=== PATIENT | male | born 1955 ===

== ENCOUNTER 2017-06-26 09:34 | Emergency (ER) | payer OTHER ==
[2017-06-26 09:41] VITALS: BMI 24.1
[2017-06-26 09:43] VITALS: RESP 18
--- NOTE | 2017-06-26 10:10 | C.PDOC ---
History Of Present Illness The patient reports 2 week history of intermittent swelling and redness to the bilateral legs and hands, which is associated with ? SOB. Patient reports that the swelling switches sides sporadically. Denies trauma, chest pain, nausea, vomiting, diarrhea, cough, fever, rash. Time Seen by Provider: 06/26/17 09:48 Chief Complaint (Nursing): Lower Extremity Problem/Injury History Per: Patient, Family () History/Exam Limitations: no limitations Onset/Duration Of Symptoms: Intermittent Episodes Current Symptoms Are (Timing): Still Present Severity: Moderate Pain Scale Rating Of: 5 Recent travel outside of the [place]: Yes (Traveled from [facility] 4 months ago.) Past Medical History Reviewed: Historical Data, Nursing Documentation, Vital Signs Vital Signs: Last Vital Signs Temp 98.4 F 06/26/17 13:55 Pulse 79 06/26/17 13:55 Resp 18 06/26/17 13:55 BP 138/72 06/26/17 13:55 Pulse Ox 98 06/26/17 14:12 - Medical History PMH: No Chronic Diseases Surgical History: No Surg Hx Family History: States: No Known Family Hx - Social History Hx Tobacco Use: No Hx Alcohol Use: Yes Hx Substance Use: No - Immunization History Hx Tetanus Toxoid Vaccination: No Hx Influenza Vaccination: No Hx Pneumococcal Vaccination: No Review Of Systems Except As Marked, All Systems Reviewed And Found Negative. Musculoskeletal: Positive for: Hand Pain Skin: Positive for: Other (erythema) Physical Exam - Physical Exam Appears: Non-toxic, No Acute Distress Skin: Normal Color, Warm Head: Atraumatic, Normacephalic Eye(s): bilateral: Normal Inspection Oral Mucosa: Moist Neck: Normal ROM, Supple Chest: Symmetrical, No Tenderness Cardiovascular: Rhythm Regular, No Friction Rub, No Murmur Respiratory: Normal Breath Sounds, No Rales, No Rhonchi Gastrointestinal/Abdominal: Normal Exam, Soft, No Tenderness Back: Normal Inspection, No CVA Tenderness Extremity: Normal ROM, Other ((+) 1+ edema with erythema of the ankle and dorsal aspect of the right foot, (+) tenderness) ED Course And Treatment - Laboratory Results Result Diagrams: 06/26/17 10:51 06/26/17 12:16 O2 Sat by Pulse Oximetry: 98 (on RA) Pulse Ox Interpretation: Normal Medical Decision Making Medical Decision Making: The patient has history of migratory swelling and tenderness in different joints , which is most likely gout vs. rheumatic arthritis. Disposition - Disposition Referrals: [facility] [Outside] Disposition: HOME/ ROUTINE Disposition Time: 14:06 Condition: GOOD Additional Instructions: Follow up with the medical doctor within 1-2 days without fail. Return if worsened. Prescriptions: Colchicine [Mitigare] 0.6 mg PO DAILY #5 capsule Ibuprofen [Motrin] 1 tab PO TID PRN #30 tab PRN Reason: Pain predniSONE [Prednisone] 20 mg PO BID #10 tab Instructions: Gout, Low Purine Diet Forms: [employer] [facility] (German) Print Language: BELARUSIAN - Clinical Impression Clinical Impression: Gout
[2017-06-26 10:54] LABS: BASO # 0.1 K/uL (0.0-0.2); BASO % 0.7 % (0.0-2.0); EOS # 0.7 K/uL (0.0-0.7); EOS % 6.3 % (0.0-4.0); HEMOGLOBIN 13.4 g/dL (12.0-18.0); LYMPH # 2.5 K/uL (1.0-4.3); LYMPH % 23.2 % (20.0-40.0); MEAN CELL VOLUME 92.2 fL (80.0-94.0); MEAN CORPUSCULAR HEMOGLOBIN 31.9 pg (27.0-31.0); MEAN CORPUSCULAR HGB CONC 34.6 g/dL (33.0-37.0); MEAN PLATELET VOLUME 9.1 fL (7.2-11.7); MONO # 1.1 K/uL (0.0-0.8); MONO % 10.3 % (0.0-10.0); NEUT # 6.3 K/uL (1.8-7.0); NEUT % 59.5 % (50.0-75.0); RBC 4.2 Mil/uL (4.40-5.90); RED CELL DISTRIBUTION WIDTH 13.2 % (11.5-14.5); WHITE BLOOD COUNT 10.7 K/uL (4.8-10.8)
--- NOTE | 2017-06-26 11:09 | RAD ---
PROCEDURE: CHEST RADIOGRAPH, 1 VIEW HISTORY: chest pain COMPARISON: None available. FINDINGS: LUNGS: Left basilar calcified granulomas. No focal consolidation. PLEURA: No pneumothorax or pleural fluid seen. CARDIOVASCULAR: Atherosclerotic aortic calcifications. Cardiomediastinal silhouette enlarged. OSSEOUS STRUCTURES: Degenerative changes. VISUALIZED UPPER ABDOMEN: Normal. OTHER FINDINGS: None. IMPRESSION: No active disease.
[2017-06-26 12:26] LABS: ALBUMIN 3.9 g/dL (3.5-5.0); ALT/SGPT 15 U/L (21-72); AST/SGOT 37 U/L (17-59); BLOOD UREA NITROGEN 13 mg/dL (9-20); CALCIUM 9.4 mg/dl (8.6-10.4); GFR AFRICAN-AMERICAN > 60; GFR NON-AFRICAN AMERICAN > 60
[2017-06-26 12:34] LABS: B-TYPE NATRIURETIC PEPTIDE 1070 pg/mL (0-900)
--- NOTE | 2017-06-26 13:12 | CARD ---
APPROVED REPORT EKG Measurement Heart [id number] <Conclusion> Normal sinus rhythm Normal ECG
[2017-06-26 13:55] VITALS: BP 138/72; PULSE 79; TEMP 98.4
[2017-06-26 14:09] VITALS: O2SAT 98
== END 2017-06-26 14:32 | disposition home or self-care (01) ==
LOC: C.ER 09:34
DX: M10.9 Gout, unspecified (principal)
CPT/HCPCS: 71045; 80053; 83880; 85025; 85651; 86140; 93005; 96374; 99284; J1885

== ENCOUNTER 2017-11-18 18:50 | Inpatient (IN) | payer MEDICAID, OTHER ==
[2017-11-18 18:50] VITALS: BMI 24.1
--- NOTE | 2017-11-18 19:16 | C.PDOC ---
History Of Present Illness 62 year old male patient presents to the ER with left flank pain that started about 2 days ago. Patient had recent CABG 2 months ago. Patient denies fever, nausea, vomiting, or chills. Time Seen by Provider: 11/18/17 19:16 Chief Complaint (Nursing): Back Pain History Per: Patient History/Exam Limitations: no limitations Onset/Duration Of Symptoms: Days Current Symptoms Are (Timing): Still Present Quality Of Discomfort: "Pain" Severity: Moderate Pain Scale Rating Of: 4 Previous Symptoms: Prior Surgery (CABG) Associated Symptoms: denies: Other (N/V/D, fever, or chills) Past Medical History Reviewed: Historical Data, Nursing Documentation, Vital Signs Vital Signs: Last Vital Signs Temp 97.6 F 11/18/17 19:01 Pulse 64 11/18/17 23:09 Resp 23 11/18/17 23:09 BP 135/64 11/18/17 23:09 Pulse Ox 95 11/18/17 23:09 - Medical History PMH: HTN Family History: States: No Known Family Hx - Social History Hx Tobacco Use: No Hx Alcohol Use: Yes Hx Substance Use: No - Immunization History Hx Tetanus Toxoid Vaccination: No Hx Influenza Vaccination: No Hx Pneumococcal Vaccination: No Review Of Systems Constitutional: Negative for: Fever, Chills Cardiovascular: Negative for: Chest Pain Respiratory: Negative for: Shortness of Breath Gastrointestinal: Positive for: Abdominal Pain (Left flank pain). Negative for : Nausea, Vomiting Genitourinary: Negative for: Dysuria Musculoskeletal: Negative for: Back Pain Skin: Negative for: Rash Neurological: Negative for: Weakness Psych: Negative for: Anxiety Physical Exam - Physical Exam Appears: Non-toxic, No Acute Distress Skin: Warm, Dry Head: Normacephalic Eye(s): bilateral: Normal Inspection Oral Mucosa: Moist Neck: Trachea Midline, Supple Chest: Symmetrical Cardiovascular: Rhythm Regular Respiratory: No Rales, No Rhonchi, No Wheezing Gastrointestinal/Abdominal: Soft, Tenderness (LLQ ), No Distention, No Guarding , Other (CABG scar) Back: Normal Inspection Male Genital: No Inguinal Tenderness, No Inguinal Swelling Extremity: Normal ROM (x4) Extremity: Bilateral: Atraumatic Pulses: Left Dorsalis Pedis: Normal (2+), Right Dorsalis Pedis: Normal (2+) Neurological/Psych: Oriented x3 Gait: Steady ED Course And Treatment - Laboratory Results Result Diagrams: 11/18/17 19:36 11/18/17 20:22 ECG: Interpreted By Me, Viewed By Me O2 Sat by Pulse Oximetry: 97 (RA) Pulse Ox Interpretation: Normal Progress Note: Impression: left flank abdominal pain. Plan: -- blood work. - - piperacillin IVP. -- IV fluids. -- Toradol. -- Zofran. -- UA. spoke with surgical residentl. will come and see the pt at the bedside Disposition Discussed With DrHuy: Yanick Reyes Comment: accepted the pt on his service and took over the care at 12AM Doctor Will See Patient In The: Hospital Counseled Patient/Family Regarding: Studies Performed, Diagnosis - Disposition Disposition: HOSPITALIZED Disposition Time: 19:16 Condition: FAIR Forms: [facility] (Guyanese) - POA Present On Arrival: None - Clinical Impression Clinical Impression: Acute appendicitis - Scribe Statement The provider has reviewed the documentation as recorded by the Alex Kenny Do Provider Attestation: All medical record entries made by the Alex were at my direction and personally dictated by me. I have reviewed the chart and agree that the record accurately reflects my personal performance of the history, physical exam, medical decision making, and the department course for this patient. I have also personally directed, reviewed, and agree with the discharge instructions and disposition.
[2017-11-18] MEDS ORDERED: Sodium Chloride 0.9% 1,000 ML IV ONE (19:17)
[2017-11-18 19:42] LABS: BASO # 0.1 K/uL (0.0-0.2); BASO % 0.3 % (0.0-2.0); EOS # 0.1 K/uL (0.0-0.7); EOS % 0.3 % (0.0-4.0); LYMPH # 2.3 K/uL (1.0-4.3); LYMPH % 12.8 % (20.0-40.0); MEAN CORPUSCULAR HEMOGLOBIN 29.4 pg (27.0-31.0); MEAN CORPUSCULAR HGB CONC 33.6 g/dL (33.0-37.0); MEAN PLATELET VOLUME 8.1 fL (7.2-11.7); MONO # 1.2 K/uL (0.0-0.8); MONO % 6.5 % (0.0-10.0); NEUT # 14.2 K/uL (1.8-7.0); NEUT % 80.1 % (50.0-75.0); RBC 4.42 Mil/uL (4.40-5.90); RED CELL DISTRIBUTION WIDTH 16.5 % (11.5-14.5)
[2017-11-18] MEDS ORDERED: Sodium Chloride 0.9% 1,000 ML ONE (19:47)
[2017-11-18 19:50] LABS: INR 1.5; MEAN CELL VOLUME 87.5 fL (80.0-94.0); PROTHROMBIN TIME 16.1 SECONDS (9.7-12.2); WHITE BLOOD COUNT 17.7 K/uL (4.8-10.8)
[2017-11-18 19:53] LABS: URINE BILIRUBIN NEGATIVE (NEGATIVE); URINE BLOOD 1+ (NEGATIVE); URINE CLARITY Clear (Clear); URINE COLOR Yellow (YELLOW); URINE GLUCOSE (UA) NORMAL (Normal); URINE LEUKOCYTE ESTERASE NEG Leu/uL (Negative); URINE PROTEIN 1+ mg/dL (NEGATIVE); URINE UROBILINOGEN NORMAL mg/dL (0.2-1.0)
[2017-11-18] MEDS ORDERED: Piperacillin/Tazobact 3.375 gm 100 ML IVPB STA (19:54)
[2017-11-18] MEDS ORDERED: Piperacillin/Tazobact 3.375 gm 100 ML IVPB ONE (20:31)
[2017-11-18 20:40] LABS: ALB/GLOB RATIO 1.1 (1.0-2.1); ALBUMIN 3.8 g/dL (3.5-5.0); ALT/SGPT 34 U/L (21-72); AST/SGOT 17 U/L (17-59); BLOOD UREA NITROGEN 10 mg/dL (9-20); CALCIUM 8.8 mg/dl (8.6-10.4); GFR AFRICAN-AMERICAN > 60; GFR NON-AFRICAN AMERICAN > 60
[2017-11-18] MEDS ORDERED: Iohexol 300 100 ML IJ ONE (21:05)
[2017-11-19] MEDS: Sodium Chloride 0.9% 1,000 ML IV SCH ×2 (01:02→13:54)
[2017-11-19] MEDS: Cefepime IV 1 gm in Dextrose 1 GM/50 ML BAG IVPB SCH ×2 (01:02→13:24)
[2017-11-19] MEDS ORDERED: Sodium Chloride 0.9% 1,000 ML ONE (01:03)
--- NOTE | 2017-11-19 01:42 | CP.PCM.CON ---
Addendum entered and electronically signed by Deniz Jarquin DO 11/19/17 07:09: Patient w/ history of cardiac bypass ~6-8 weeks ago Medically optimize for OR Will need cardiac clearance Gamaliel PGY3 Original Note: <Deniz Jarquin - Last Filed: 11/19/17 01:37> History of Present Illness - History of Present Illness History of Present Illness: General Surgery Consult for Dr. Woody 62M with PMHx of HTN presents to [facility] [place] ED with complaints of abdominal pain. Patient states abdominal pain began yesterday morning after having breakfast. Patient states pain was generalized throughout abdomen initially and as time progressed pain localized to right lower quadrant. He reports nausea but denies vomiting. Denies fever/chills. Last BM was two days ago. Patient states he has never had a colonoscopy. Denies fever/chills, headache/dizziness, chest pain/ SOB. PMH: as stated above PSH: CABG Allergies: NKDA Fam Hx: non contributory Review of Systems - Review of Systems Review of Systems: 12pt ROS unremarkable unless as stated in HPI Past Patient History - Past Social History Smoking Status: Former Smoker - CARDIAC Hx Hypertension: Yes - PSYCHIATRIC Hx Substance Use: No - SURGICAL HISTORY Hx Surgeries: Yes Other/Comment: open heart 09/25 - ANESTHESIA Hx Anesthesia: Yes Hx Anesthesia Reactions: No Meds Allergies/Adverse Reactions: Allergies Allergy/AdvReac Type Severity Reaction Status Date / Time No Known Allergies Allergy Verified 06/26/17 09:40 - Medications Medications: Current Medications Acetaminophen (Tylenol 325mg Tab) 650 mg PO Q6 PRN PRN Reason: Fever >100.4 F Sodium Chloride (Sodium Chloride 0.9%) 1,000 mls @ 75 mls/hr IV .[id number] [facility] Last Admin: 11/19/17 01:02 Dose: 75 mls/hr Cefepime HCl (Maxipime Iv 1 Gm Premix) 1 gm in 50 mls @ 100 mls/hr IVPB Q12H [facility] PRN Reason: Protocol Last Admin: 11/19/17 01:02 Dose: 100 mls/hr Metronidazole (Flagyl) 500 mg in 100 mls @ 100 mls/hr IVPB Q8 [facility] PRN Reason: Protocol Morphine Sulfate (Morphine) 4 mg IVP Q4 PRN PRN Reason: Pain, moderate (4-7) Ondansetron HCl (Zofran Inj) 4 mg IVP Q6H PRN PRN Reason: Nausea/Vomiting Physical Exam - Constitutional Appears: No Acute Distress - Head Exam Head Exam: NORMOCEPHALIC - Eye Exam Eye Exam: EOMI, Normal appearance Pupil Exam: NORMAL ACCOMODATION - ENT Exam ENT Exam: Mucous Membranes Moist - Respiratory Exam Respiratory Exam: NORMAL BREATHING PATTERN - Cardiovascular Exam Cardiovascular Exam: +S1, +S2 - GI/Abdominal Exam GI & Abdominal Exam: Guarding, Soft, Tenderness. absent: Distended, Firm, Rebound, Rigid Additional comments: +McBurney's point +RLQ tenderness +Rebound tenderness - Neurological Exam Neurological exam: Alert, Reflexes Normal - Psychiatric Exam Psychiatric exam: Normal Mood - Skin Skin Exam: Normal Color Results - Vital Signs Recent Vital Signs: Last Vital Signs Temp 97.6 F 11/18/17 19:01 Pulse 64 11/18/17 23:09 Resp 23 11/18/17 23:09 BP 135/64 11/18/17 23:09 Pulse Ox 97 11/19/17 00:11 - Labs Result Diagrams: 11/18/17 19:36 11/18/17 20:22 Labs: Laboratory Results - last 24 hr 11/18/17 11/18/17 11/18/17 19:36 19:36 19:36 WBC 17.7 H D RBC 4.42 Hgb 13.0 Hct 38.7 MCV 87.5 D MCH 29.4 MCHC 33.6 RDW 16.5 H Plt Count 330 MPV 8.1 Neut % (Auto) 80.1 H Lymph % (Auto) 12.8 L [place] % (Auto) 6.5 Eos % (Auto) 0.3 Baso % (Auto) 0.3 Neut # (Auto) 14.2 H Lymph # (Auto) 2.3 [place] # (Auto) 1.2 H Eos # (Auto) 0.1 Baso # (Auto) 0.1 PT 16.1 H INR 1.5 APTT 29 Sodium Potassium Chloride Carbon Dioxide Anion Gap BUN Creatinine Est GFR ( Amer) Est GFR (Non-Af Amer) Random Glucose Calcium Total Bilirubin AST ALT Alkaline Phosphatase Total Protein Albumin Globulin Albumin/Globulin Ratio Lipase Urine Color Yellow Urine Clarity Clear Urine pH 5.0 Ur Specific [place] 1.021 Urine Protein 1+ H Urine Glucose (UA) Normal Urine Ketones Trace Urine Blood 1+ H Urine Nitrate Negative Urine Bilirubin Negative Urine Urobilinogen Normal Ur Leukocyte Esterase Neg Urine WBC (Auto) 1 Urine RBC (Auto) 23 H 11/18/17 11/18/17 19:36 20:22 WBC RBC Hgb Hct MCV MCH MCHC RDW Plt Count MPV Neut % (Auto) Lymph % (Auto) [place] % (Auto) Eos % (Auto) Baso % (Auto) Neut # (Auto) Lymph # (Auto) [place] # (Auto) Eos # (Auto) Baso # (Auto) PT INR APTT Sodium Cancelled 140 Potassium Cancelled 5.0 Chloride Cancelled 100 Carbon Dioxide Cancelled 27 Anion Gap Cancelled 17 BUN Cancelled 10 Creatinine Cancelled 0.8 Est GFR ( Amer) Cancelled > 60 Est GFR (Non-Af Amer) Cancelled > 60 Random Glucose Cancelled 110 Calcium Cancelled 8.8 Total Bilirubin Cancelled 0.8 AST Cancelled 17 D ALT Cancelled 34 Alkaline Phosphatase Cancelled 72 Total Protein Cancelled 7.1 Albumin Cancelled 3.8 Globulin Cancelled 3.4 Albumin/Globulin Ratio Cancelled 1.1 Lipase Cancelled Urine Color Urine Clarity Urine pH Ur Specific [place] Urine Protein Urine Glucose (UA) Urine Ketones Urine Blood Urine Nitrate Urine Bilirubin Urine Urobilinogen Ur Leukocyte Esterase Urine WBC (Auto) Urine RBC (Auto) Assessment & Plan - Assessment and Plan (Free Text) Assessment: 62M with acute appendicitis Plan: NPO IVF ABx Anti-emetics/ analgesic F/u EKG, CXR OR for laparoscopic appendectomy Consent in chart D/w Dr. Annalise Alston PGY3 <Patricio Woody - Last Filed: 11/21/17 22:48> Meds - Medications Medications: Current Medications Acetaminophen (Tylenol 325mg Tab) 650 mg PO Q6 PRN PRN Reason: Fever >100.4 F Enoxaparin Sodium (Lovenox) 40 mg SC DAILY [facility] Last Admin: 11/21/17 14:10 Dose: 40 mg Hydromorphone HCl (Dilaudid) 0.5 mg IVP Q3H PRN PRN Reason: Pain, moderate (4-7) Last Admin: 11/21/17 18:25 Dose: 0.5 mg Sodium Chloride (Sodium Chloride 0.9%) 1,000 mls @ 75 mls/hr IV .[id number] [facility] Last Admin: 11/21/17 18:20 Dose: 75 mls/hr Meropenem 1 gm/ Sodium (Chloride) 100 mls @ 100 mls/hr IVPB Q8H [facility] PRN Reason: Protocol Last Admin: 11/21/17 21:39 Dose: 100 mls/hr Metronidazole (Flagyl) 500 mg in 100 mls @ 100 mls/hr IVPB Q8H [facility] PRN Reason: Protocol Last Admin: 11/21/17 18:18 Dose: 100 mls/hr BUPIVACAINE 0.125%/0.9% NACL (Bupivacaine-Ns 0.125% On-Q [place] Stringer) 600 mls @ 4 mls/ hr IJ ONCE ONE Stop: 11/26/17 17:26 Last Admin: 11/20/17 12:35 Dose: 0 mls Metoprolol Tartrate (Lopressor) 100 mg PO DAILY [facility] Last Admin: 11/21/17 10:20 Dose: 100 mg Ondansetron HCl (Zofran Inj) 4 mg IVP Q6H PRN PRN Reason: Nausea/Vomiting Rosuvastatin Calcium (Crestor) 20 mg PO DAILY [facility] Last Admin: 11/21/17 10:20 Dose: 20 mg Results - Vital Signs Recent Vital Signs: Last Vital Signs Temp 98.6 F 11/21/17 16:21 Pulse 75 11/21/17 16:21 Resp 20 11/21/17 16:21 BP 148/89 11/21/17 16:21 Pulse Ox 93 L 11/21/17 16:21 - Labs Result Diagrams: 11/21/17 07:09 11/21/17 07:09 Labs: Laboratory Results - last 24 hr 11/21/17 11/21/17 07:09 07:09 WBC 9.7 RBC 4.16 L Hgb 12.3 Hct 36.4 MCV 87.5 MCH 29.5 MCHC 33.7 RDW 16.5 H Plt Count 278 MPV 8.5 Neut % (Auto) 77.2 H Lymph % (Auto) 13.8 L [place] % (Auto) 8.6 Eos % (Auto) 0.2 Baso % (Auto) 0.2 Neut # (Auto) 7.5 H Lymph # (Auto) 1.3 [place] # (Auto) 0.8 Eos # (Auto) 0.0 Baso # (Auto) 0.0 Sodium 134 Potassium 3.8 Chloride 99 Carbon Dioxide 24 Anion Gap 15 BUN 8 L Creatinine 0.6 L Est GFR ( Amer) > 60 Est GFR (Non-Af Amer) > 60 Random Glucose 107 Calcium 8.0 L Phosphorus 3.2 Magnesium 1.3 L Attending/Attestation - Attestation I have personally seen and examined this patient.: Yes I have fully participated in the care of the patient.: Yes I have reviewed all pertinent clinical information: Yes Notes (Text): Pt was seen and examined at bedside Agree with above note and assessment Pt with RLQ pain and tenderness Labs and radiology reviewed Ass: Acute Appendicitis with Recent Aortic Aneurysm surgery 6 weeks ago Plan : Cardiology consult Possible Lap Appendectomy tomorrow Consent EKG, CXR NPO, IVF ID consult IV antibiotics Plan d.w pt in detail. Risk and benefit explained in detail.
[2017-11-19] MEDS ORDERED: metroNIDAZOLE IV 500 mg/100 ml 500 MG/100 ML BAG IVPB SCH (06:00)
--- NOTE | 2017-11-19 09:20 | RAD ---
Date of service: 11/19/2017 HISTORY: pre-op COMPARISON: 06/26/2017 FINDINGS: LUNGS: No consolidation. Tiny left basal granuloma -similar PLEURA: No significant pleural effusion identified, no pneumothorax apparent. CARDIOVASCULAR: Minimal cardiomegaly cardiac silhouette less pronounced than before -in part due to PA technique. Interval midline sternotomy. Interval valvular prosthesis placed. OSSEOUS STRUCTURES: Cervical and lesser thoracic spondylosis VISUALIZED UPPER ABDOMEN: Normal. OTHER FINDINGS: None. IMPRESSION: Interval surgical changes. No acute cardiopulmonary pathology appreciated Other findings -as above.
--- NOTE | 2017-11-19 09:42 | CT ---
Date of service: 11/18/2017 PROCEDURE: CT Abdomen and Pelvis with intravenous contrast HISTORY: left flank pain COMPARISON: None. TECHNIQUE: Multiple contiguous axial images were performed through the abdomen and pelvis with the use of intravenous contrast. Subsequently, sagittal and coronal reformatted images were obtained. Radiation dose: Total exam DLP = 493 mGy-cm. This CT exam was performed using one or more of the following dose reduction techniques: Automated exposure control, adjustment of the mA and/or kV according to patient size, and/or use of iterative reconstruction technique. FINDINGS: LOWER THORAX: 3 millimeter nodular density along the fissure within the right lung on series 3, image 18. 4 millimeter subpleural nodular density along the right lower lobe on series 3, image 32. 6 millimeter calcified granuloma within the left lower lobe on series 3, image 47. Coronary and cardiac calcifications. Valvular calcifications. Clinical correlation. LIVER: 2 millimeter hypodensity in the right hepatic dome, too small to adequately characterize. Additional 8 millimeter hypodensity within the medial aspect of the right hepatic lobe demonstrating a Hounsfield unit attenuation of 22, indeterminate. Correlation with multiphasic CT or MR would be helpful for evaluation of this lesion. Fatty infiltration of the liver. GALLBLADDER AND BILE DUCTS: Unremarkable. PANCREAS: Unremarkable. No gross lesion or ductal dilatation. SPLEEN: Unremarkable. ADRENALS: Unremarkable. No mass. KIDNEYS AND URETERS: Punctate hypodensity within the midpole of the right kidney, too small to adequately characterize. VASCULATURE: Atherosclerotic calcification of the aorta. BOWEL: Moderate diverticulosis present in the sigmoid and descending colon. Diverticulosis. Fecal retention in the colon. APPENDIX: Appendix demonstrates moderate diffuse distention consistent with moderate acute appendicitis. Moderate periappendiceal fat stranding. Appendix measures up to 1.4 centimeters. PERITONEUM: Unremarkable. No free fluid. No free air. LYMPH NODES: Unremarkable. No enlarged lymph nodes. BLADDER: Thick-walled urinary bladder. REPRODUCTIVE: Unremarkable. BONES: Degenerative changes in the spine. OTHER FINDINGS: None. IMPRESSION: 1. Findings concerning for acute appendicitis. Clinical correlation. 2. 8 millimeter hypodensity within the medial aspect of the right hepatic lobe demonstrating a Hounsfield unit attenuation of 22, indeterminate. Correlation with multiphasic CT or MR would be helpful for further evaluation of this lesion. 3. Thick-walled urinary bladder. Clinical correlation. These findings were preliminarily reported at 11:56 p.m. on 11/18/[address] Shravan Daniels from [facility].
--- NOTE | 2017-11-19 10:48 | CP.PCM.CON ---
History of Present Illness - History of Present Illness History of Present Illness: I was asked to provide preopertive cardiovascular risk assessment by Dr Reyes. Patient is a 62 year old male with PMH ascending thoracic aortic aneurysm s/p surgical repair 2 months ago, HTN, hypercholesterolemia who presents with abdominal pain. Patient is visiting his daughter and lives in [place]. The patient was noted to have abdominal pain and was found to have acute appendicitis. He will require appendectomy. The patient complained of dyspnea on exertion 2 months ago. He provides extensive records from his electronic wire[facility] in [place], including echocardiogram, cath findings and operative report which I have reviewed. He was found to have an ascending aortic aneurysm with moderate AI. left ventricular function was normal, and preoperative cardiac cath revealed nonobstructive CAD. He underwent valve sparing repair of the ascending aorta. Postoperative course was notable for a short period of atrial fibrillation, but he did not require anticoagulation. His most recent echocardiogram was one month ago revealing normal left vetnricular function and no AI. He denies dyspnea on exertion or angina. Review of Systems - Constitutional Constitutional: absent: As Per HPI, Anorexia, Chills, Daytime Sleepiness, Excessive Sweating, Fatigue, Fever, Frequent Falls, Headache, Increased Appetite , Lethargy, Malaise, Night Sweats, Snoring, Sleep Apnea, Weight Gain, Weight Loss, Weakness, Other - EENT Eyes: absent: As Per HPI, Blind Spots, Blurred Vision, Change in Vision, Decreased Night Vision, Diplopia, Discharge, Dry Eye, Exophthalmos, Floaters, Irritation, Itchy Eyes, Loss of Peripheral Vision, Pain, Photophobia, Requires Corrective Lenses, Sees Flashes, Spots in Vision, Tunnel Vision, Other Visual Disturbances, Loss of Vision, Other Ears: absent: As Per HPI, Decreased Hearing, Ear Discharge, Ear Pain, Tinnitus, Abnormal Hearing, Disequilibrium, Dizziness, Other Nose/Mouth/Throat: absent: As Per HPI, Epistaxis, Nasal Congestion, Nasal Discharge, Nasal Obstruction, Nasal Trauma, Nose Pain, Post Nasal Drip, Sinus Pain, Sinus Pressure, Bleeding Gums, Change in Voice, Dental Pain, Dry Mouth, Dysphagia, Halitosis, Hoarsness, Lip Swelling, Mouth Lesions, Mouth Pain, Odynophagia, Sore Throat, Throat Swelling, Tongue Swelling, Facial Pain, Neck Pain, Neck Mass, Other - Cardiovascular Cardiovascular: absent: As Per HPI, Acrocyanosis, Chest Pain, Chest Pain at Rest , Chest Pain with Activity, Claudication, Diaphoresis, Dyspnea, Dyspnea on Exertion, Edema, Irregular Heart Rhythm, Pain Radiating to Arm/Neck/Jaw, Leg Edema, Leg Ulcers, Lightheadedness, Orthopnea, Palpitations, Paroxysmal Nocturnal Dyspnea, Pedal Edema, Radiating Pain, Rapid Heart Rate, Slow Heart Rate, Syncope, Other - Respiratory Respiratory: absent: As Per HPI, Cough, Dyspnea, Hemoptysis, Dyspnea on Exertion , Wheezing, Snoring, Stridor, Pain on Inspiration, Chest Congestion, Excessive Mucous Production, Change in Mucous Color, Pain with Coughing, Other - Gastrointestinal Gastrointestinal: Abdominal Pain - Genitourinary Genitourinary: absent: As Per HPI, Change in Urinary Stream, Difficulty Urinating, Dysuria, Flank Pain, Hematuria, Pyuria, Nocturia, Urinary Incontinence, Urinary Frequency, Urinary Hesitance, Urinary Urgency, Voiding Freq/Small Amts, Freq UTI, Hx Renal/Bladder Calculi, Hx /Renal Surgery, Bladder Distension, Other - Musculoskeletal Musculoskeletal: absent: As Per HPI, Abnormal Gait, Arthralgias, Atrophy, Back Pain, Deformity, Joint Swelling, Limited Range of Motion, Loss of Height, Muscle Cramps, Muscle Weakness, Myalgias, Neck Pain, Numbness, Radiating Pain into Limb, Stiffness, Tingling, Other - Integumentary Integumentary: absent: As Per HPI, Acne, Alopecia, Bleeding Lesions, Change in Hair, Change in Nails, Change in Pigmentation, Changing Lesions, Dry Skin, Erythema, Furuncle, Hirsutism, Lesions, New Lesions, Non-Healing Lesions, Photosensitivity, Pruritus, Rash, Skin Pain, Skin Ulcer, Sores, Striae, Swelling , Unusual Bruising, Wounds, Jaundice, Other - Neurological Neurological: absent: As Per HPI, Abnormal Gait, Abnormal Hearing, Abnormal Movements, Abnormal Speech, Behavioral Changes, Burning Sensations, Confusion, Convulsions, Disequilibrium, Dizziness, Numbness, Focal Weakness, Frequent Falls , Headaches, Lack of Coordination, Loss of Vision, Memory Loss, Paresthesias, Radicular Pain, Restless Legs, Sensory Deficit, Syncope, Tingling, Tremor, Vertigo, Weakness, Other Visual Disturbances, Other - Psychiatric Psychiatric: absent: As Per HPI, Abnormal Sleep Pattern, Anhedonia, Anxiety, Auditory Hallucinations, Behavioral Changes, Change in Appetite, Change in Libido, Confusion, Depression, Difficulty Concentrating, Hallucinations, Homicidal Ideation, Hopelessness, Irritability, Memory Loss, Mood Swings, Panic Attacks, Paranoia, Suicidal Ideation, Visual Hallucinations, Tactile Hallucinations, Other - Endocrine Endocrine: absent: As Per HPI, Change in Body Appearance, Change in Libido, Cold Intolorance, Deepening of Voice, Excessive Sweating, Fatigue, Flushing, Heat Intolorance, Increase in Ring/Shoe/Hat Size, Palpitations, Polydipsia, Polyphagia, Polyuria, Other - Hematologic/Lymphatic Hematologic: absent: As Per HPI, Easy Bleeding, Easy Bruising, Lymphadenopathy, Other Past Patient History - Past Medical History & Family History Past Medical History?: Yes - Past Social History Smoking Status: Former Smoker - CARDIAC Hx Cardiac Disorders: Yes Hx Hypertension: Yes - PULMONARY Hx Respiratory Disorders: No - NEUROLOGICAL Hx Neurological Disorder: No - HEENT Hx HEENT Problems: No - RENAL Hx Chronic Kidney Disease: No - ENDOCRINE/METABOLIC Hx Endocrine Disorders: No - HEMATOLOGICAL/ONCOLOGICAL Hx Blood Disorders: No - INTEGUMENTARY Hx Dermatological Problems: No - MUSCULOSKELETAL/RHEUMATOLOGICAL Hx Musculoskeletal Disorders: No Hx Falls: No - GASTROINTESTINAL Hx Gastrointestinal Disorders: No - GENITOURINARY/GYNECOLOGICAL Hx Genitourinary Disorders: No - PSYCHIATRIC Hx Psychophysiologic Disorder: No Hx Substance Use: No - SURGICAL HISTORY Hx Surgeries: Yes Other/Comment: open heart 09/25 - ANESTHESIA Hx Anesthesia: Yes Hx Anesthesia Reactions: No Meds Allergies/Adverse Reactions: Allergies Allergy/AdvReac Type Severity Reaction Status Date / Time No Known Allergies Allergy Verified 06/26/17 09:40 - Medications Medications: Current Medications Acetaminophen (Tylenol 325mg Tab) 650 mg PO Q6 PRN PRN Reason: Fever >100.4 F Sodium Chloride (Sodium Chloride 0.9%) 1,000 mls @ 75 mls/hr IV .[id number] [facility] Last Admin: 11/19/17 01:02 Dose: 75 mls/hr Cefepime HCl (Maxipime Iv 1 Gm Premix) 1 gm in 50 mls @ 100 mls/hr IVPB Q12H [facility] PRN Reason: Protocol Last Admin: 11/19/17 01:02 Dose: 100 mls/hr Meropenem 1 gm/ Sodium (Chloride) 100 mls @ 100 mls/hr IVPB Q8H [place] PRN Reason: Protocol Morphine Sulfate (Morphine) 4 mg IVP Q4 PRN PRN Reason: Pain, moderate (4-7) Ondansetron HCl (Zofran Inj) 4 mg IVP Q6H PRN PRN Reason: Nausea/Vomiting Physical Exam - Constitutional Appears: Non-toxic - Head Exam Head Exam: NORMAL INSPECTION - Eye Exam Eye Exam: Normal appearance - ENT Exam ENT Exam: Mucous Membranes Moist - Neck Exam Neck exam: Positive for: Full Rom - Respiratory Exam Respiratory Exam: NORMAL BREATHING PATTERN - Cardiovascular Exam Cardiovascular Exam: REGULAR RHYTHM - GI/Abdominal Exam GI & Abdominal Exam: Normal Bowel Sounds - Rectal Exam Rectal Exam: Deferred - Extremities Exam Extremities exam: Positive for: normal inspection, pedal edema - Back Exam Back exam: NORMAL INSPECTION - Neurological Exam Neurological exam: Alert, Oriented x3 - Psychiatric Exam Psychiatric exam: Normal Affect - Skin Skin Exam: Normal Color Results - Vital Signs Recent Vital Signs: Last Vital Signs Temp 98.4 F 11/19/17 08:14 Pulse 69 11/19/17 08:14 Resp 18 11/19/17 08:14 BP 135/85 11/19/17 08:14 Pulse Ox 94 L 11/19/17 08:14 - Labs Result Diagrams: 11/18/17 19:36 11/18/17 20:22 Labs: Laboratory Results - last 24 hr 11/18/17 11/18/17 11/18/17 19:36 19:36 19:36 WBC 17.7 H D RBC 4.42 Hgb 13.0 Hct 38.7 MCV 87.5 D MCH 29.4 MCHC 33.6 RDW 16.5 H Plt Count 330 MPV 8.1 Neut % (Auto) 80.1 H Lymph % (Auto) 12.8 L [place] % (Auto) 6.5 Eos % (Auto) 0.3 Baso % (Auto) 0.3 Neut # (Auto) 14.2 H Lymph # (Auto) 2.3 [place] # (Auto) 1.2 H Eos # (Auto) 0.1 Baso # (Auto) 0.1 PT 16.1 H INR 1.5 APTT 29 Sodium Potassium Chloride Carbon Dioxide Anion Gap BUN Creatinine Est GFR ( Amer) Est GFR (Non-Af Amer) Random Glucose Calcium Total Bilirubin AST ALT Alkaline Phosphatase Total Protein Albumin Globulin Albumin/Globulin Ratio Lipase Urine Color Yellow Urine Clarity Clear Urine pH 5.0 Ur Specific [place] 1.021 Urine Protein 1+ H Urine Glucose (UA) Normal Urine Ketones Trace Urine Blood 1+ H Urine Nitrate Negative Urine Bilirubin Negative Urine Urobilinogen Normal Ur Leukocyte Esterase Neg Urine WBC (Auto) 1 Urine RBC (Auto) 23 H 11/18/17 11/18/17 19:36 20:22 WBC RBC Hgb Hct MCV MCH MCHC RDW Plt Count MPV Neut % (Auto) Lymph % (Auto) [place] % (Auto) Eos % (Auto) Baso % (Auto) Neut # (Auto) Lymph # (Auto) [place] # (Auto) Eos # (Auto) Baso # (Auto) PT INR APTT Sodium Cancelled 140 Potassium Cancelled 5.0 Chloride Cancelled 100 Carbon Dioxide Cancelled 27 Anion Gap Cancelled 17 BUN Cancelled 10 Creatinine Cancelled 0.8 Est GFR ( Amer) Cancelled > 60 Est GFR (Non-Af Amer) Cancelled > 60 Random Glucose Cancelled 110 Calcium Cancelled 8.8 Total Bilirubin Cancelled 0.8 AST Cancelled 17 D ALT Cancelled 34 Alkaline Phosphatase Cancelled 72 Total Protein Cancelled 7.1 Albumin Cancelled 3.8 Globulin Cancelled 3.4 Albumin/Globulin Ratio Cancelled 1.1 Lipase Cancelled Urine Color Urine Clarity Urine pH Ur Specific [place] Urine Protein Urine Glucose (UA) Urine Ketones Urine Blood Urine Nitrate Urine Bilirubin Urine Urobilinogen Ur Leukocyte Esterase Urine WBC (Auto) Urine RBC (Auto) - EKG Data EKG Interpreted by: Myself EKG shows normal: Sinus rhythm - EKG Data EKG Specific Queries Q Waves: II, III, AVF T Wave Inversions Noted in: I, AVL Assessment & Plan (1) Acute appendicitis Assessment and Plan: patient has no signficant CAD from cath 2 months ago. He had successful repair of ascending aortic aneurysm, without valvular dysfunction on echocardiogram one month ago. The patient is medically optimized for appendectomy. Status: Acute (2) Ascending aortic aneurysm Assessment and Plan: stable. no current heart failure Status: Acute (3) HTN (hypertension) Assessment and Plan: betablocker therapy Status: Acute
[2017-11-19] MEDS: Morphine 4 MG/ML VIAL IVP PRN ×2 (11:30→21:38)
[2017-11-19] MEDS: Meropenem 1 GM in Sodium Chloride 0.9% 100 ML IVPB SCH ×2 (13:31→21:33)
--- NOTE | 2017-11-19 14:06 | CP.PCM.HP ---
Past Patient History - Past Medical History & Family History Past Medical History?: Yes - Past Social History Smoking Status: Former Smoker - CARDIAC Hx Cardiac Disorders: Yes Hx Hypertension: Yes - PULMONARY Hx Respiratory Disorders: No - NEUROLOGICAL Hx Neurological Disorder: No - HEENT Hx HEENT Problems: No - RENAL Hx Chronic Kidney Disease: No - ENDOCRINE/METABOLIC Hx Endocrine Disorders: No - HEMATOLOGICAL/ONCOLOGICAL Hx Blood Disorders: No - INTEGUMENTARY Hx Dermatological Problems: No - MUSCULOSKELETAL/RHEUMATOLOGICAL Hx Musculoskeletal Disorders: No Hx Falls: No - GASTROINTESTINAL Hx Gastrointestinal Disorders: No - GENITOURINARY/GYNECOLOGICAL Hx Genitourinary Disorders: No - PSYCHIATRIC Hx Psychophysiologic Disorder: No Hx Substance Use: No - SURGICAL HISTORY Hx Surgeries: Yes Other/Comment: open heart 09/25 - ANESTHESIA Hx Anesthesia: Yes Hx Anesthesia Reactions: No Meds Allergies/Adverse Reactions: Allergies Allergy/AdvReac Type Severity Reaction Status Date / Time No Known Allergies Allergy Verified 06/26/17 09:40 Physical Exam - Constitutional Appears: Well - Head Exam Head Exam: ATRAUMATIC, NORMAL INSPECTION, NORMOCEPHALIC - Eye Exam Eye Exam: EOMI, Normal appearance, PERRL Pupil Exam: NORMAL ACCOMODATION, PERRL - ENT Exam ENT Exam: Mucous Membranes Moist, Normal Exam - Neck Exam Neck exam: Positive for: Normal Inspection - Respiratory Exam Respiratory Exam: Decreased Breath Sounds - Cardiovascular Exam Cardiovascular Exam: REGULAR RHYTHM, +S1, +S2 - GI/Abdominal Exam GI & Abdominal Exam: Diminished Bowel Sounds, Soft - Rectal Exam Rectal Exam: Deferred Results - Vital Signs Recent Vital Signs: Last Vital Signs Temp 98.4 F 11/19/17 08:14 Pulse 69 11/19/17 08:14 Resp 18 11/19/17 08:14 BP 135/85 11/19/17 08:14 Pulse Ox 94 L 11/19/17 08:14 - Labs Result Diagrams: 11/18/17 19:36 11/18/17 20:22 Labs: Laboratory Results - last 24 hr 11/18/17 11/18/17 11/18/17 19:36 19:36 19:36 WBC 17.7 H D RBC 4.42 Hgb 13.0 Hct 38.7 MCV 87.5 D MCH 29.4 MCHC 33.6 RDW 16.5 H Plt Count 330 MPV 8.1 Neut % (Auto) 80.1 H Lymph % (Auto) 12.8 L [place] % (Auto) 6.5 Eos % (Auto) 0.3 Baso % (Auto) 0.3 Neut # (Auto) 14.2 H Lymph # (Auto) 2.3 [place] # (Auto) 1.2 H Eos # (Auto) 0.1 Baso # (Auto) 0.1 PT 16.1 H INR 1.5 APTT 29 Sodium Potassium Chloride Carbon Dioxide Anion Gap BUN Creatinine Est GFR ( Amer) Est GFR (Non-Af Amer) Random Glucose Calcium Total Bilirubin AST ALT Alkaline Phosphatase Total Protein Albumin Globulin Albumin/Globulin Ratio Lipase Urine Color Yellow Urine Clarity Clear Urine pH 5.0 Ur Specific [place] 1.021 Urine Protein 1+ H Urine Glucose (UA) Normal Urine Ketones Trace Urine Blood 1+ H Urine Nitrate Negative Urine Bilirubin Negative Urine Urobilinogen Normal Ur Leukocyte Esterase Neg Urine WBC (Auto) 1 Urine RBC (Auto) 23 H 11/18/17 11/18/17 19:36 20:22 WBC RBC Hgb Hct MCV MCH MCHC RDW Plt Count MPV Neut % (Auto) Lymph % (Auto) [place] % (Auto) Eos % (Auto) Baso % (Auto) Neut # (Auto) Lymph # (Auto) [place] # (Auto) Eos # (Auto) Baso # (Auto) PT INR APTT Sodium Cancelled 140 Potassium Cancelled 5.0 Chloride Cancelled 100 Carbon Dioxide Cancelled 27 Anion Gap Cancelled 17 BUN Cancelled 10 Creatinine Cancelled 0.8 Est GFR ( Amer) Cancelled > 60 Est GFR (Non-Af Amer) Cancelled > 60 Random Glucose Cancelled 110 Calcium Cancelled 8.8 Total Bilirubin Cancelled 0.8 AST Cancelled 17 D ALT Cancelled 34 Alkaline Phosphatase Cancelled 72 Total Protein Cancelled 7.1 Albumin Cancelled 3.8 Globulin Cancelled 3.4 Albumin/Globulin Ratio Cancelled 1.1 Lipase Cancelled Urine Color Urine Clarity Urine pH Ur Specific [place] Urine Protein Urine Glucose (UA) Urine Ketones Urine Blood Urine Nitrate Urine Bilirubin Urine Urobilinogen Ur Leukocyte Esterase Urine WBC (Auto) Urine RBC (Auto)
--- NOTE | 2017-11-19 18:06 | CP.PCM.CON ---
History of Present Illness - History of Present Illness History of Present Illness: 62M with PMHx of HTN presents to [facility] ED with complaints of abdominal pain. Patient states abdominal pain began yesterday morning after having breakfast. Patient states pain was generalized throughout abdomen initially and as time progressed pain localized to right lower quadrant and RUQ He reports nausea but denies vomiting. PMH: as stated above PSH: CABG Allergies: NKDA Fam Hx: non contributory Review of Systems - Review of Systems All systems: reviewed and no additional remarkable complaints except - Constitutional Constitutional: As Per HPI - EENT Eyes: absent: As Per HPI, Blind Spots, Blurred Vision, Change in Vision, Decreased Night Vision, Diplopia, Discharge, Dry Eye, Exophthalmos, Floaters, Irritation, Itchy Eyes, Loss of Peripheral Vision, Pain, Photophobia, Requires Corrective Lenses, Sees Flashes, Spots in Vision, Tunnel Vision, Other Visual Disturbances, Loss of Vision, Other Ears: absent: As Per HPI, Decreased Hearing, Ear Discharge, Ear Pain, Tinnitus, Abnormal Hearing, Disequilibrium, Dizziness, Other Nose/Mouth/Throat: absent: As Per HPI, Epistaxis, Nasal Congestion, Nasal Discharge, Nasal Obstruction, Nasal Trauma, Nose Pain, Post Nasal Drip, Sinus Pain, Sinus Pressure, Bleeding Gums, Change in Voice, Dental Pain, Dry Mouth, Dysphagia, Halitosis, Hoarsness, Lip Swelling, Mouth Lesions, Mouth Pain, Odynophagia, Sore Throat, Throat Swelling, Tongue Swelling, Facial Pain, Neck Pain, Neck Mass, Other - Cardiovascular Cardiovascular: absent: As Per HPI, Acrocyanosis, Chest Pain, Chest Pain at Rest , Chest Pain with Activity, Claudication, Diaphoresis, Dyspnea, Dyspnea on Exertion, Edema, Irregular Heart Rhythm, Pain Radiating to Arm/Neck/Jaw, Leg Edema, Leg Ulcers, Lightheadedness, Orthopnea, Palpitations, Paroxysmal Nocturnal Dyspnea, Pedal Edema, Radiating Pain, Rapid Heart Rate, Slow Heart Rate, Syncope, Other - Respiratory Respiratory: absent: As Per HPI, Cough, Dyspnea, Hemoptysis, Dyspnea on Exertion , Wheezing, Snoring, Stridor, Pain on Inspiration, Chest Congestion, Excessive Mucous Production, Change in Mucous Color, Pain with Coughing, Other - Gastrointestinal Gastrointestinal: As Per HPI - Genitourinary Genitourinary: absent: As Per HPI, Change in Urinary Stream, Difficulty Urinating, Dysuria, Flank Pain, Hematuria, Pyuria, Nocturia, Urinary Incontinence, Urinary Frequency, Urinary Hesitance, Urinary Urgency, Voiding Freq/Small Amts, Freq UTI, Hx Renal/Bladder Calculi, Hx /Renal Surgery, Bladder Distension, Other - Musculoskeletal Musculoskeletal: absent: As Per HPI, Abnormal Gait, Arthralgias, Atrophy, Back Pain, Deformity, Joint Swelling, Limited Range of Motion, Loss of Height, Muscle Cramps, Muscle Weakness, Myalgias, Neck Pain, Numbness, Radiating Pain into Limb, Stiffness, Tingling, Other - Integumentary Integumentary: absent: As Per HPI, Acne, Alopecia, Bleeding Lesions, Change in Hair, Change in Nails, Change in Pigmentation, Changing Lesions, Dry Skin, Erythema, Furuncle, Hirsutism, Lesions, New Lesions, Non-Healing Lesions, Photosensitivity, Pruritus, Rash, Skin Pain, Skin Ulcer, Sores, Striae, Swelling , Unusual Bruising, Wounds, Jaundice, Other - Neurological Neurological: absent: As Per HPI, Abnormal Gait, Abnormal Hearing, Abnormal Movements, Abnormal Speech, Behavioral Changes, Burning Sensations, Confusion, Convulsions, Disequilibrium, Dizziness, Numbness, Focal Weakness, Frequent Falls , Headaches, Lack of Coordination, Loss of Vision, Memory Loss, Paresthesias, Radicular Pain, Restless Legs, Sensory Deficit, Syncope, Tingling, Tremor, Vertigo, Weakness, Other Visual Disturbances, Other - Psychiatric Psychiatric: absent: As Per HPI, Abnormal Sleep Pattern, Anhedonia, Anxiety, Auditory Hallucinations, Behavioral Changes, Change in Appetite, Change in Libido, Confusion, Depression, Difficulty Concentrating, Hallucinations, Homicidal Ideation, Hopelessness, Irritability, Memory Loss, Mood Swings, Panic Attacks, Paranoia, Suicidal Ideation, Visual Hallucinations, Tactile Hallucinations, Other - Endocrine Endocrine: absent: As Per HPI, Change in Body Appearance, Change in Libido, Cold Intolorance, Deepening of Voice, Excessive Sweating, Fatigue, Flushing, Heat Intolorance, Increase in Ring/Shoe/Hat Size, Palpitations, Polydipsia, Polyphagia, Polyuria, Other - Hematologic/Lymphatic Hematologic: absent: As Per HPI, Easy Bleeding, Easy Bruising, Lymphadenopathy, Other Past Patient History - Past Medical History & Family History Past Medical History?: Yes - Past Social History Smoking Status: Former Smoker - CARDIAC Hx Cardiac Disorders: Yes Hx Hypertension: Yes - PULMONARY Hx Respiratory Disorders: No - NEUROLOGICAL Hx Neurological Disorder: No - HEENT Hx HEENT Problems: No - RENAL Hx Chronic Kidney Disease: No - ENDOCRINE/METABOLIC Hx Endocrine Disorders: No - HEMATOLOGICAL/ONCOLOGICAL Hx Blood Disorders: No - INTEGUMENTARY Hx Dermatological Problems: No - MUSCULOSKELETAL/RHEUMATOLOGICAL Hx Musculoskeletal Disorders: No Hx Falls: No - GASTROINTESTINAL Hx Gastrointestinal Disorders: No - GENITOURINARY/GYNECOLOGICAL Hx Genitourinary Disorders: No - PSYCHIATRIC Hx Psychophysiologic Disorder: No Hx Substance Use: No - SURGICAL HISTORY Hx Surgeries: Yes Other/Comment: open heart 09/25 - ANESTHESIA Hx Anesthesia: Yes Hx Anesthesia Reactions: No Meds Allergies/Adverse Reactions: Allergies Allergy/AdvReac Type Severity Reaction Status Date / Time No Known Allergies Allergy Verified 06/26/17 09:40 - Medications Medications: Current Medications Acetaminophen (Tylenol 325mg Tab) 650 mg PO Q6 PRN PRN Reason: Fever >100.4 F Sodium Chloride (Sodium Chloride 0.9%) 1,000 mls @ 75 mls/hr IV .[id number] [facility] Last Admin: 11/19/17 13:54 Dose: Not Given Cefepime HCl (Maxipime Iv 1 Gm Premix) 1 gm in 50 mls @ 100 mls/hr IVPB Q12H [facility] PRN Reason: Protocol Last Admin: 11/19/17 13:24 Dose: 100 mls/hr Meropenem 1 gm/ Sodium (Chloride) 100 mls @ 100 mls/hr IVPB Q8H [facility] PRN Reason: Protocol Last Admin: 11/19/17 13:31 Dose: 100 mls/hr Morphine Sulfate (Morphine) 4 mg IVP Q4 PRN PRN Reason: Pain, moderate (4-7) Last Admin: 11/19/17 11:30 Dose: 4 mg Ondansetron HCl (Zofran Inj) 4 mg IVP Q6H PRN PRN Reason: Nausea/Vomiting Physical Exam - Constitutional Appears: Non-toxic, Chronically Ill - Head Exam Head Exam: NORMOCEPHALIC - Eye Exam Eye Exam: PERRL. absent: Scleral icterus - ENT Exam ENT Exam: Mucous Membranes Dry, Normal External Ear Exam - Neck Exam Neck exam: Negative for: Lymphadenopathy - Respiratory Exam Respiratory Exam: Decreased Breath Sounds, Clear to Auscultation Bilateral - Cardiovascular Exam Cardiovascular Exam: REGULAR RHYTHM, +S1, +S2 - GI/Abdominal Exam GI & Abdominal Exam: Diminished Bowel Sounds, Distended, Guarding, Soft, Tenderness. absent: Organomegaly, Rebound, Rigid - Rectal Exam Rectal Exam: Deferred - Exam Exam: NORMAL INSPECTION - Extremities Exam Extremities exam: Positive for: pedal pulses present. Negative for: calf tenderness, pedal edema, tenderness - Back Exam Back exam: absent: CVA tenderness (L), CVA tenderness (R) - Neurological Exam Neurological exam: Alert, CN II-XII Intact, Oriented x3, Reflexes Normal - Psychiatric Exam Psychiatric exam: Normal Mood - Skin Skin Exam: Dry Results - Vital Signs Recent Vital Signs: Last Vital Signs Temp 98.3 F 11/19/17 17:40 Pulse 79 11/19/17 17:40 Resp 20 11/19/17 17:40 BP 141/82 11/19/17 17:40 Pulse Ox 95 11/19/17 17:40 - Labs Result Diagrams: 11/18/17 19:36 11/18/17 20:22 Labs: Laboratory Results - last 24 hr 11/18/17 11/18/17 11/18/17 19:36 19:36 19:36 WBC 17.7 H D RBC 4.42 Hgb 13.0 Hct 38.7 MCV 87.5 D MCH 29.4 MCHC 33.6 RDW 16.5 H Plt Count 330 MPV 8.1 Neut % (Auto) 80.1 H Lymph % (Auto) 12.8 L [place] % (Auto) 6.5 Eos % (Auto) 0.3 Baso % (Auto) 0.3 Neut # (Auto) 14.2 H Lymph # (Auto) 2.3 [place] # (Auto) 1.2 H Eos # (Auto) 0.1 Baso # (Auto) 0.1 PT 16.1 H INR 1.5 APTT 29 Sodium Potassium Chloride Carbon Dioxide Anion Gap BUN Creatinine Est GFR ( Amer) Est GFR (Non-Af Amer) Random Glucose Calcium Total Bilirubin AST ALT Alkaline Phosphatase Total Protein Albumin Globulin Albumin/Globulin Ratio Lipase Urine Color Yellow Urine Clarity Clear Urine pH 5.0 Ur Specific [place] 1.021 Urine Protein 1+ H Urine Glucose (UA) Normal Urine Ketones Trace Urine Blood 1+ H Urine Nitrate Negative Urine Bilirubin Negative Urine Urobilinogen Normal Ur Leukocyte Esterase Neg Urine WBC (Auto) 1 Urine RBC (Auto) 23 H 11/18/17 11/18/17 19:36 20:22 WBC RBC Hgb Hct MCV MCH MCHC RDW Plt Count MPV Neut % (Auto) Lymph % (Auto) [place] % (Auto) Eos % (Auto) Baso % (Auto) Neut # (Auto) Lymph # (Auto) [place] # (Auto) Eos # (Auto) Baso # (Auto) PT INR APTT Sodium Cancelled 140 Potassium Cancelled 5.0 Chloride Cancelled 100 Carbon Dioxide Cancelled 27 Anion Gap Cancelled 17 BUN Cancelled 10 Creatinine Cancelled 0.8 Est GFR ( Amer) Cancelled > 60 Est GFR (Non-Af Amer) Cancelled > 60 Random Glucose Cancelled 110 Calcium Cancelled 8.8 Total Bilirubin Cancelled 0.8 AST Cancelled 17 D ALT Cancelled 34 Alkaline Phosphatase Cancelled 72 Total Protein Cancelled 7.1 Albumin Cancelled 3.8 Globulin Cancelled 3.4 Albumin/Globulin Ratio Cancelled 1.1 Lipase Cancelled Urine Color Urine Clarity Urine pH Ur Specific [place] Urine Protein Urine Glucose (UA) Urine Ketones Urine Blood Urine Nitrate Urine Bilirubin Urine Urobilinogen Ur Leukocyte Esterase Urine WBC (Auto) Urine RBC (Auto) Assessment & Plan (1) Acute appendicitis Status: Acute - Assessment and Plan (Free Text) Assessment: cont iv rx possible OR appendectomy
[2017-11-20] MEDS: Sodium Chloride 0.9% 1,000 ML IV SCH ×3 (03:00→21:16)
[2017-11-20] MEDS: Meropenem 1 GM in Sodium Chloride 0.9% 100 ML IVPB SCH ×3 (05:49→21:14)
[2017-11-20 06:02] LABS: HEMOGLOBIN 12.6 g/dL (12.0-18.0); MEAN CELL VOLUME 87.3 fL (80.0-94.0); MEAN CORPUSCULAR HEMOGLOBIN 28.6 pg (27.0-31.0); MEAN CORPUSCULAR HGB CONC 32.8 g/dL (33.0-37.0); RBC 4.39 Mil/uL (4.40-5.90); RED CELL DISTRIBUTION WIDTH 16.9 % (11.5-14.5)
[2017-11-20 06:08] LABS: INR 1.5; PROTHROMBIN TIME 15.9 SECONDS (9.7-12.2)
--- NOTE | 2017-11-20 06:21 | CP.PCM.PN ---
Subjective - Date & Time of Evaluation Date of Evaluation: 11/20/17 Time of Evaluation: 06:16 - Subjective Subjective: PGY-[address] Reyes's service Pt seen and examined at bedside. Nursing reports pt afebrile, and no acute events overnight. He denies subjective fever, chills, chest pain, or SOB. Pt for appendectomy today with Dr. Woody. Objective - Vital Signs/Intake and Output Vital Signs (last 24 hours): Temp Pulse Resp BP Pulse Ox 97.6 F 64 20 125/75 95 11/20/17 00:16 11/20/17 00:16 11/20/17 00:16 11/20/17 00:16 11/20/17 00:16 Intake and Output: 11/19/17 11/20/17 18:59 06:59 Intake Total 900 800 Balance 900 800 - Medications Medications: Current Medications Acetaminophen (Tylenol 325mg Tab) 650 mg PO Q6 PRN PRN Reason: Fever >100.4 F Sodium Chloride (Sodium Chloride 0.9%) 1,000 mls @ 75 mls/hr IV [id number] [facility] Last Admin: 11/20/17 03:00 Dose: Not Given Meropenem 1 gm/ Sodium (Chloride) 100 mls @ 100 mls/hr IVPB Q8H [facility] PRN Reason: Protocol Last Admin: 11/20/17 05:49 Dose: 100 mls/hr Metoprolol Tartrate (Lopressor) 100 mg PO DAILY [facility] Morphine Sulfate (Morphine) 4 mg IVP Q4 PRN PRN Reason: Pain, moderate (4-7) Last Admin: 11/19/17 21:38 Dose: 4 mg Ondansetron HCl (Zofran Inj) 4 mg IVP Q6H PRN PRN Reason: Nausea/Vomiting Rosuvastatin Calcium (Crestor) 20 mg PO DAILY [facility] - Labs Labs: 11/20/17 05:57 11/18/17 20:22 PT 16.1 SECONDS (9.7-12.2) H 11/18/17 19:36 INR 1.5 11/18/17 19:36 APTT 29 SECONDS (21-34) 11/18/17 19:36 - Additional Findings Additional findings: - Constitutional Appears: No Acute Distress - Head Exam Head Exam: NORMOCEPHALIC - Eye Exam Eye Exam: EOMI, Normal appearance Pupil Exam: NORMAL ACCOMODATION - ENT Exam ENT Exam: Mucous Membranes Moist - Respiratory Exam Respiratory Exam: NORMAL BREATHING PATTERN - Cardiovascular Exam Cardiovascular Exam: +S1, +S2 - GI/Abdominal Exam GI & Abdominal Exam: Soft, Tenderness. absent: Distended, Firm, Rebound, Rigid Additional comments: - Neurological Exam Neurological exam: Alert, Reflexes Normal - Psychiatric Exam Psychiatric exam: Normal Mood - Skin Skin Exam: Normal Color Assessment and Plan - Assessment and Plan (Free Text) Plan: Acute Appendicitis CT A/P (11/20/17): Findings concernign for acute appendicitis. 8 mm hypodensity within right hepatic lobe. Correlate with mutiphasic CT/MR. Thick walled urinary bladder. (see full report) Dr. Woody, Gen surgery, help appreciated - pt for appendectomy 11/20/17 Dr. Bell, ID franchise consultant, help appreciated - continue IV antibiotics Dr. Rodriguez, Cardiology for Pre-op Clearance - viewed records showing cath performed two months ago: no significant CAD - pt medically optimized for appendectomy Merrem 1gm IV Q8H (started 11/19/17) Flagyl 500mg IV Q8H NS @ 75 Tylenol 650mg PO Q6H PRN for feveer Diludid 0.5mg Q3H PRN pain Zofran 4mg IV Q4H PRN N/V CAD Hx of CABG Crestor 20mg PO HS Dr. Rodriguez, Cardiology for Pre-op Clearance - viewed records showing cath performed two months ago: no significant CAD CHF (unknown type) Elevated pro-BNP at admission (2200) ECHO: Viewed by Dr. Rodriguez - no indication of heart failure - f/u repeat ECHO Ascending Thoracic Aortic Aneurysm, s/p repair S/P Repair two months ago Monitor BP HTN Lopressor 100mg PO Daily Prophylaxis Hold heparin until restarted by surgery GI not idicated SCDs Sawyer Richardson PGY-[address] Reyes
[2017-11-20 06:23] LABS: B-TYPE NATRIURETIC PEPTIDE 2280 pg/mL (0-900)
[2017-11-20 06:36] LABS: BLOOD UREA NITROGEN 9 mg/dL (9-20); CALCIUM 8.8 mg/dl (8.6-10.4); GFR AFRICAN-AMERICAN > 60; GFR NON-AFRICAN AMERICAN > 60
[2017-11-20] MEDS ORDERED: ceFAZolin IV 2 gm in Dextrose 2 GM/50 ML BAG IVPB ONE (07:08)
[2017-11-20] MEDS ORDERED: Lidocaine/Epinephrine 1% 1:100000 10 ML IJ ONE (07:08)
[2017-11-20] MEDS ORDERED: Bupivacaine 0.25% 20 ML INJ IJ ONE (07:08)
[2017-11-20] MEDS ORDERED: Nitroglycerin 50mg in D5W 50 MG/250 ML BOTTLE IV ONE (07:24)
[2017-11-20] MEDS ORDERED: Midazolam 2 MG/2 ML VIAL ONE (07:33)
[2017-11-20] MEDS ORDERED: Etomidate 20 mg/10ml Inj IV ONE ×2 (07:33→08:47)
[2017-11-20] MEDS ORDERED: HYDROmorphone 0.5 mg/0.5 ml ISec IVP PRN ×2 (08:40→10:57)
[2017-11-20] MEDS ORDERED: Succinylcholine Chloride 20 mg/ml Syr (5 ml) IV ONE (08:47)
[2017-11-20] MEDS ORDERED: Neostigmine Methylsulfate 3mg/3ml Syringe IV ONE (08:47)
[2017-11-20] MEDS ORDERED: ePHEDrine 50 mg/ml Inj ONE (08:47)
[2017-11-20] MEDS ORDERED: Rocuronium 10 mg/ml (5 ml) ONE ×2 (08:47→09:26)
[2017-11-20] MEDS ORDERED: Bupivacaine HCl 0.5% PF (30 ml) Inj ONE (10:06)
[2017-11-20] MEDS ORDERED: Lactated Ringer's 1,000 ML IV ONE (10:56)
--- NOTE | 2017-11-20 11:05 | PCM.SURG1 ---
Surgeon's Initial Post Op Note - Surgeon's Notes Surgeon: Dr. Woody Sap Security Architect: Dr. Jarquin PGY3 Type of Anesthesia: General Endo Anesthesia Administered By: Dr. Rios Pre-Operative Diagnosis: acute appendicitis Operative Findings: see operative report Post-Operative Diagnosis: see operative report Operation Performed: laparoscopic appendectomy converted to open appendectomy. Open cecectomy. lysis of adhesions. drainage of abdominal collection Specimen/Specimens Removed: appendix. base of cecum Estimated Blood Loss: EBL {In ML}: 50 Blood Products Given: N/A Drains Used: Fede Huston Post-Op Condition: Good Date of Surgery/Procedure: 11/20/17 Time of Surgery/Procedure: 08:30
[2017-11-20] MEDS ORDERED: BUPIVACAINE 0.125%/0.9% NACL 600 ML IJ ONE (11:27)
[2017-11-20] MEDS: metroNIDAZOLE IV 500 mg/100 ml 500 MG/100 ML BAG IVPB SCH ×2 (11:30→18:05)
--- NOTE | 2017-11-20 11:37 | CARD ---
APPROVED REPORT Date of service: 11/19/2017 EKG Measurement Heart [id number] <Conclusion> Sinus rhythm with 1st degree AV block Inferior infarct, age undetermined ST & T wave abnormality, consider lateral ischemia Abnormal ECG
--- NOTE | 2017-11-20 11:37 | CARD ---
APPROVED REPORT Date of service: 11/19/2017 EKG Measurement Heart [id number] [id number] <Conclusion> Sinus rhythm with 1st degree AV block ST & T wave abnormality, consider lateral ischemia Abnormal ECG
--- NOTE | 2017-11-20 16:25 | CP.PCM.PN ---
Subjective - Date & Time of Evaluation Date of Evaluation: 11/20/17 Time of Evaluation: 09:00 - Subjective Subjective: c/o pain s/p OR Objective - Vital Signs/Intake and Output Vital Signs (last 24 hours): Temp Pulse Resp BP Pulse Ox 97.4 F L 76 20 145/84 95 11/20/17 14:05 11/20/17 14:05 11/20/17 14:05 11/20/17 14:05 11/20/17 14:05 Intake and Output: 11/20/17 11/20/17 06:59 18:59 Intake Total 800 2050 Output Total 1650 Balance 800 400 - Medications Medications: Current Medications Acetaminophen (Tylenol 325mg Tab) 650 mg PO Q6 PRN PRN Reason: Fever >100.4 F Enoxaparin Sodium (Lovenox) 40 mg SC DAILY [facility] Hydromorphone HCl (Dilaudid) 0.5 mg IVP Q3H PRN PRN Reason: Pain, moderate (4-7) Sodium Chloride (Sodium Chloride 0.9%) 1,000 mls @ 75 mls/hr IV .[id number] [facility] Last Admin: 11/20/17 03:00 Dose: Not Given Meropenem 1 gm/ Sodium (Chloride) 100 mls @ 100 mls/hr IVPB Q8H [facility] PRN Reason: Protocol Last Admin: 11/20/17 13:57 Dose: 100 mls/hr Metronidazole (Flagyl) 500 mg in 100 mls @ 100 mls/hr IVPB Q8H [facility] PRN Reason: Protocol Last Admin: 11/20/17 11:30 Dose: 100 mls BUPIVACAINE 0.125%/0.9% NACL (Bupivacaine-Ns 0.125% On-Q Air Defense Specialist) 600 mls @ 4 mls/ hr IJ ONCE ONE Stop: 11/26/17 17:26 Last Admin: 11/20/17 12:35 Dose: 0 mls Metoprolol Tartrate (Lopressor) 100 mg PO DAILY [facility] Last Admin: 11/20/17 10:52 Dose: Not Given Ondansetron HCl (Zofran Inj) 4 mg IVP Q6H PRN PRN Reason: Nausea/Vomiting Rosuvastatin Calcium (Crestor) 20 mg PO DAILY [facility] Last Admin: 11/20/17 10:52 Dose: Not Given - Labs Labs: 11/20/17 05:57 11/20/17 05:57 PT 15.9 SECONDS (9.7-12.2) H 11/20/17 05:57 INR 1.5 11/20/17 05:57 APTT 29 SECONDS (21-34) 11/18/17 19:36 - Constitutional Appears: Non-toxic, Chronically Ill - Head Exam Head Exam: NORMOCEPHALIC - Eye Exam Eye Exam: absent: Nystagmus - ENT Exam ENT Exam: Normal External Ear Exam - Neck Exam Neck Exam: absent: Lymphadenopathy - Respiratory Exam Respiratory Exam: Decreased Breath Sounds - Cardiovascular Exam Cardiovascular Exam: REGULAR RHYTHM - GI/Abdominal Exam GI & Abdominal Exam: Distended, Soft, Tenderness - Rectal Exam Rectal Exam: Deferred - Extremities Exam Extremities Exam: absent: Pedal Edema - Back Exam Back Exam: absent: CVA tenderness (L), CVA tenderness (R) - Neurological Exam Neurological Exam: Alert, Awake, CN II-XII Intact Assessment and Plan (1) Acute appendicitis Status: Acute - Assessment and Plan (Free Text) Assessment: s/p laparoscopic appendectomy converted to open appendectomy. Open cecectomy. lysis of adhesions. drainage of abdominal collection
[2017-11-20] MEDS: HYDROmorphone 0.5 mg/0.5 ml ISec IVP PRN (19:50)
--- NOTE | 2017-11-20 20:37 | CP.PCM.PN ---
Subjective - Date & Time of Evaluation Date of Evaluation: 11/20/17 Time of Evaluation: 11:00 - Subjective Subjective: clinically same Objective - Vital Signs/Intake and Output Vital Signs (last 24 hours): Temp Pulse Resp BP Pulse Ox 98.4 F 72 20 134/84 95 11/20/17 15:00 11/20/17 15:00 11/20/17 15:00 11/20/17 15:00 11/20/17 15:00 Intake and Output: 11/20/17 11/21/17 18:59 06:59 Intake Total 2350 Output Total 1650 Balance 700 - Medications Medications: Current Medications Acetaminophen (Tylenol 325mg Tab) 650 mg PO Q6 PRN PRN Reason: Fever >100.4 F Enoxaparin Sodium (Lovenox) 40 mg SC DAILY [facility] Hydromorphone HCl (Dilaudid) 0.5 mg IVP Q3H PRN PRN Reason: Pain, moderate (4-7) Last Admin: 11/20/17 19:50 Dose: 0.5 mg Sodium Chloride (Sodium Chloride 0.9%) 1,000 mls @ 75 mls/hr IV .[id number] [facility] Last Admin: 11/20/17 16:49 Dose: Not Given Meropenem 1 gm/ Sodium (Chloride) 100 mls @ 100 mls/hr IVPB Q8H [facility] PRN Reason: Protocol Last Admin: 11/20/17 13:57 Dose: 100 mls/hr Metronidazole (Flagyl) 500 mg in 100 mls @ 100 mls/hr IVPB Q8H [facility] PRN Reason: Protocol Last Admin: 11/20/17 18:05 Dose: 100 mls/hr BUPIVACAINE 0.125%/0.9% NACL (Bupivacaine-Ns 0.125% On-Q Ornamental Plasterer Helper) 600 mls @ 4 mls/ hr IJ ONCE ONE Stop: 11/26/17 17:26 Last Admin: 11/20/17 12:35 Dose: 0 mls Metoprolol Tartrate (Lopressor) 100 mg PO DAILY [facility] Last Admin: 11/20/17 10:52 Dose: Not Given Ondansetron HCl (Zofran Inj) 4 mg IVP Q6H PRN PRN Reason: Nausea/Vomiting Pneumococcal Polyvalent Vaccine (Pneumovax 23 Vaccine) 0.5 ml IM .ONCE ONE Stop: 11/21/17 10:01 Rosuvastatin Calcium (Crestor) 20 mg PO DAILY [facility] Last Admin: 11/20/17 10:52 Dose: Not Given - Labs Labs: 11/20/17 05:57 11/20/17 05:57 PT 15.9 SECONDS (9.7-12.2) H 11/20/17 05:57 INR 1.5 11/20/17 05:57 APTT 29 SECONDS (21-34) 11/18/17 19:36
[2017-11-21] MEDS: metroNIDAZOLE IV 500 mg/100 ml 500 MG/100 ML BAG IVPB SCH ×3 (02:03→18:18)
[2017-11-21] MEDS: HYDROmorphone 0.5 mg/0.5 ml ISec IVP PRN ×5 (02:04→18:25)
[2017-11-21] MEDS: Meropenem 1 GM in Sodium Chloride 0.9% 100 ML IVPB SCH ×3 (05:05→21:39)
[2017-11-21 07:22] LABS: BASO % 0.2 % (0.0-2.0); EOS % 0.2 % (0.0-4.0); HEMOGLOBIN 12.3 g/dL (12.0-18.0); LYMPH # 1.3 K/uL (1.0-4.3); LYMPH % 13.8 % (20.0-40.0); MEAN CELL VOLUME 87.5 fL (80.0-94.0); MEAN CORPUSCULAR HEMOGLOBIN 29.5 pg (27.0-31.0); MEAN CORPUSCULAR HGB CONC 33.7 g/dL (33.0-37.0); MEAN PLATELET VOLUME 8.5 fL (7.2-11.7); MONO # 0.8 K/uL (0.0-0.8); MONO % 8.6 % (0.0-10.0); NEUT # 7.5 K/uL (1.8-7.0); NEUT % 77.2 % (50.0-75.0); NRBC % 0.1 % (0.0-2.0); RBC 4.16 Mil/uL (4.40-5.90); RED CELL DISTRIBUTION WIDTH 16.5 % (11.5-14.5); WHITE BLOOD COUNT 9.7 K/uL (4.8-10.8)
[2017-11-21 07:44] LABS: BLOOD UREA NITROGEN 8 mg/dL (9-20); GFR AFRICAN-AMERICAN > 60; GFR NON-AFRICAN AMERICAN > 60
--- NOTE | 2017-11-21 07:54 | CP.PCM.PN ---
<ChingLeander - Last Filed: 11/21/17 08:16> Subjective - Date & Time of Evaluation Date of Evaluation: 11/21/17 Time of Evaluation: 07:51 - Subjective Subjective: General Surgery Progress Note for Dr. Woody 62M seen and evaluated this AM. No acute events overnight. Dressings c/d/i. Pain well controlled. Denies BM or passing flatus. Denies f/c, n/v/d, SOB, CP, or urinary symptoms. Objective - Vital Signs/Intake and Output Vital Signs (last 24 hours): Temp Pulse Resp BP Pulse Ox 99 F 85 20 144/85 96 11/21/17 01:00 11/20/17 23:00 11/20/17 23:00 11/20/17 23:00 11/20/17 23:00 Intake and Output: 11/21/17 11/21/17 06:59 18:59 Intake Total 1125 Output Total 1140 Balance -15 - Medications Medications: Current Medications Acetaminophen (Tylenol 325mg Tab) 650 mg PO Q6 PRN PRN Reason: Fever >100.4 F Enoxaparin Sodium (Lovenox) 40 mg SC DAILY [facility] Hydromorphone HCl (Dilaudid) 0.5 mg IVP Q3H PRN PRN Reason: Pain, moderate (4-7) Last Admin: 11/21/17 02:04 Dose: 0.5 mg Sodium Chloride (Sodium Chloride 0.9%) 1,000 mls @ 75 mls/hr IV .[id number] [facility] Last Admin: 11/20/17 21:16 Dose: 75 mls/hr Meropenem 1 gm/ Sodium (Chloride) 100 mls @ 100 mls/hr IVPB Q8H [facility] PRN Reason: Protocol Last Admin: 11/21/17 05:05 Dose: 100 mls/hr Metronidazole (Flagyl) 500 mg in 100 mls @ 100 mls/hr IVPB Q8H [facility] PRN Reason: Protocol Last Admin: 11/21/17 02:03 Dose: 100 mls/hr BUPIVACAINE 0.125%/0.9% NACL (Bupivacaine-Ns 0.125% On-Q Slusher Operator) 600 mls @ 4 mls/ hr IJ ONCE ONE Stop: 11/26/17 17:26 Last Admin: 11/20/17 12:35 Dose: 0 mls Metoprolol Tartrate (Lopressor) 100 mg PO DAILY [facility] Last Admin: 11/20/17 10:52 Dose: Not Given Ondansetron HCl (Zofran Inj) 4 mg IVP Q6H PRN PRN Reason: Nausea/Vomiting Pneumococcal Polyvalent Vaccine (Pneumovax 23 Vaccine) 0.5 ml IM .ONCE ONE Stop: 11/21/17 10:01 Rosuvastatin Calcium (Crestor) 20 mg PO DAILY [facility] Last Admin: 11/20/17 10:52 Dose: Not Given - Labs Labs: 11/21/17 07:09 11/21/17 07:09 PT 15.9 SECONDS (9.7-12.2) H 11/20/17 05:57 INR 1.5 11/20/17 05:57 APTT 29 SECONDS (21-34) 11/18/17 19:36 - Constitutional Appears: Well, Non-toxic, No Acute Distress - Head Exam Head Exam: ATRAUMATIC, NORMAL INSPECTION, NORMOCEPHALIC - Eye Exam Eye Exam: EOMI, Normal appearance - Respiratory Exam Respiratory Exam: Clear to Ausculation Bilateral, NORMAL BREATHING PATTERN - Cardiovascular Exam Cardiovascular Exam: REGULAR RHYTHM, +S1, +S2. absent: Murmur - GI/Abdominal Exam GI & Abdominal Exam: Soft, Tenderness, Normal Bowel Sounds. absent: Distended, Firm, Guarding, Rigid, Rebound - Neurological Exam Neurological Exam: Alert, Awake - Psychiatric Exam Psychiatric exam: Normal Affect, Normal Mood - Skin Skin Exam: Dry, Intact, Normal Color, Warm Additional comments: dressings c/d/i Assessment and Plan - Assessment and Plan (Free Text) Assessment: 62M w/ acute appendicitis s/p laparoscopic appendectomy converted to open appendectomy, open cecectomy w/ lysis of adhesions and drainage of abdominal collection Plan: advance diet as tolerated encouraged to us IS and ambulate c/w ABx c/w pain management monitor FRANK drain output - 100cc serosanginous further recs per Dr. Annalise Flower PGY1 <Patricio Woody - Last Filed: 11/21/17 23:18> Objective - Vital Signs/Intake and Output Vital Signs (last 24 hours): Temp Pulse Resp BP Pulse Ox 98.6 F 75 20 148/89 93 L 11/21/17 16:21 11/21/17 16:21 11/21/17 16:21 11/21/17 16:21 11/21/17 16:21 Intake and Output: 11/21/17 11/22/17 18:59 06:59 Intake Total 1000 Output Total 560 Balance 440 - Medications Medications: Current Medications Acetaminophen (Tylenol 325mg Tab) 650 mg PO Q6 PRN PRN Reason: Fever >100.4 F Enoxaparin Sodium (Lovenox) 40 mg SC DAILY [facility] Last Admin: 11/21/17 14:10 Dose: 40 mg Hydromorphone HCl (Dilaudid) 0.5 mg IVP Q3H PRN PRN Reason: Pain, moderate (4-7) Last Admin: 11/21/17 18:25 Dose: 0.5 mg Sodium Chloride (Sodium Chloride 0.9%) 1,000 mls @ 75 mls/hr IV .[id number] [facility] Last Admin: 11/21/17 18:20 Dose: 75 mls/hr Meropenem 1 gm/ Sodium (Chloride) 100 mls @ 100 mls/hr IVPB Q8H [facility] PRN Reason: Protocol Last Admin: 11/21/17 21:39 Dose: 100 mls/hr Metronidazole (Flagyl) 500 mg in 100 mls @ 100 mls/hr IVPB Q8H [facility] PRN Reason: Protocol Last Admin: 11/21/17 18:18 Dose: 100 mls/hr BUPIVACAINE 0.125%/0.9% NACL (Bupivacaine-Ns 0.125% On-Q Slusher Operator) 600 mls @ 4 mls/ hr IJ ONCE ONE Stop: 11/26/17 17:26 Last Admin: 11/20/17 12:35 Dose: 0 mls Metoprolol Tartrate (Lopressor) 100 mg PO DAILY [facility] Last Admin: 11/21/17 10:20 Dose: 100 mg Ondansetron HCl (Zofran Inj) 4 mg IVP Q6H PRN PRN Reason: Nausea/Vomiting Rosuvastatin Calcium (Crestor) 20 mg PO DAILY [facility] Last Admin: 11/21/17 10:20 Dose: 20 mg - Labs Labs: 11/21/17 07:09 11/21/17 07:09 PT 15.9 SECONDS (9.7-12.2) H 11/20/17 05:57 INR 1.5 11/20/17 05:57 APTT 29 SECONDS (21-34) 11/18/17 19:36 Attending/Attestation - Attestation I have personally seen and examined this patient.: Yes I have fully participated in the care of the patient.: Yes I have reviewed all pertinent clinical information, including history, physical exam and plan: Yes Notes (Text): Pt was seen and examined at bedside Agree with above note and assessment Pt is improving Not passing gas Clear liquid diet OOB to walk DVT prophylaxis IV Antibiotics Plan d.w pt in detail. Risk and benefit explained in detail.
[2017-11-21] MEDS ORDERED: Pneumococcal 23-Valent Vaccine IM ONE (10:00)
[2017-11-21] MEDS: Enoxaparin 40 mg Syringe SC SCH (14:10)
[2017-11-21] MEDS: Sodium Chloride 0.9% 1,000 ML IV SCH ×2 (14:20→18:20)
--- NOTE | 2017-11-21 14:59 | CP.PCM.PN ---
Subjective - Date & Time of Evaluation Date of Evaluation: 11/21/17 Time of Evaluation: 09:30 - Subjective Subjective: clinically same Objective - Vital Signs/Intake and Output Vital Signs (last 24 hours): Temp Pulse Resp BP Pulse Ox 97.4 F L 90 20 147/83 95 11/21/17 08:00 11/21/17 08:00 11/21/17 08:00 11/21/17 08:00 11/21/17 08:00 Intake and Output: 11/21/17 11/21/17 06:59 18:59 Intake Total 1125 1000 Output Total 1140 Balance -15 1000 - Medications Medications: Current Medications Acetaminophen (Tylenol 325mg Tab) 650 mg PO Q6 PRN PRN Reason: Fever >100.4 F Enoxaparin Sodium (Lovenox) 40 mg SC DAILY [facility] Last Admin: 11/21/17 14:10 Dose: 40 mg Hydromorphone HCl (Dilaudid) 0.5 mg IVP Q3H PRN PRN Reason: Pain, moderate (4-7) Last Admin: 11/21/17 14:10 Dose: 0.5 mg Sodium Chloride (Sodium Chloride 0.9%) 1,000 mls @ 75 mls/hr IV .[id number] [facility] Last Admin: 11/21/17 14:20 Dose: 75 mls/hr Meropenem 1 gm/ Sodium (Chloride) 100 mls @ 100 mls/hr IVPB Q8H [facility] PRN Reason: Protocol Last Admin: 11/21/17 14:10 Dose: 100 mls/hr Metronidazole (Flagyl) 500 mg in 100 mls @ 100 mls/hr IVPB Q8H [facility] PRN Reason: Protocol Last Admin: 11/21/17 10:20 Dose: 100 mls/hr BUPIVACAINE 0.125%/0.9% NACL (Bupivacaine-Ns 0.125% On-Q Vice President Of Talent Acquisition) 600 mls @ 4 mls/ hr IJ ONCE ONE Stop: 11/26/17 17:26 Last Admin: 11/20/17 12:35 Dose: 0 mls Metoprolol Tartrate (Lopressor) 100 mg PO DAILY [facility] Last Admin: 11/21/17 10:20 Dose: 100 mg Ondansetron HCl (Zofran Inj) 4 mg IVP Q6H PRN PRN Reason: Nausea/Vomiting Rosuvastatin Calcium (Crestor) 20 mg PO DAILY [facility] Last Admin: 11/21/17 10:20 Dose: 20 mg - Labs Labs: 11/21/17 07:09 11/21/17 07:09 PT 15.9 SECONDS (9.7-12.2) H 11/20/17 05:57 INR 1.5 11/20/17 05:57 APTT 29 SECONDS (21-34) 11/18/17 19:36 - Constitutional Appears: Well - Head Exam Head Exam: ATRAUMATIC, NORMAL INSPECTION, NORMOCEPHALIC - Eye Exam Eye Exam: EOMI, Normal appearance, PERRL Pupil Exam: NORMAL ACCOMODATION, PERRL - Neck Exam Neck Exam: Full ROM, Normal Inspection. absent: Lymphadenopathy - Respiratory Exam Respiratory Exam: Decreased Breath Sounds - Cardiovascular Exam Cardiovascular Exam: REGULAR RHYTHM, +S1, +S2 - GI/Abdominal Exam GI & Abdominal Exam: Soft, Diminished Bowel Sounds - Rectal Exam Rectal Exam: Deferred
--- NOTE | 2017-11-21 23:28 | OP ---
PROCEDURE DATE: 11/20/2017 PREOPERATIVE DIAGNOSES: 1. Acute appendicitis. 2. Abdominal pain with leukocytosis. 3. Recent aortic aneurysm repair 6 weeks ago. POSTOPERATIVE DIAGNOSES: 1. Acute phlegmonous perforated appendicitis with appendicolith at the base of the appendix and cecal junction. 2. Periappendicular abscess and pelvic abscess. 3. 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 PROCEDURES DONE: 1. Laparoscopic converted to open appendectomy. 2. Open cecectomy, partial. 3. Extensive enterolysis open. 4. Drainage of peritoneal abscess open nearby appendix and in the pelvis. SURGEON: The procedure was done by Patricio mcclelland M.D. INSTRUMENT SETTER: Deniz Jarquin, PGY-2 resident. TYPE OF ANESTHESIA: General endotracheal tube anesthesia. ESTIMATED BLOOD LOSS: Around 100 mL. DRAIN: A 19-St Lucian Cb drain was placed. COMPLICATIONS: None. INTRAOPERATIVE FINDINGS: The patient had large phlegmon of acute phlegmonous perforated appendicitis in the right lower quadrant and the mass was hard, thickened, edematous with extensive post-infectious adhesion of the small bowel, thickened as well as terminal ileum to the appendix. The appendix was very sharp and appendix had a large appendicolith of approximately 1.5 cm at the base of the cecum and appendicular and cecal junction was necrosed. The patient also had periappendicular and pelvic abscesses. DESCRIPTION OF PROCEDURE: On Intraoperative steps, this is a 62-old male, who was diagnosed with acute appendicitis with abdominal pain and leukocytosis, and the patient was consented for laparoscopic appendectomy, possible open, brought to the OR, placed supine on operating table after induction of the anesthesia. The last procedure is bilateral On-Q pain catheter pump placement. The patient was consented, and brought to the OR, placed supine on the operating table. After induction of the anesthesia, the abdomen was prepped and draped in usual sterile fashion. A supraumbilical transverse incision was made after incising the skin, subcutaneous tissue, and the fascia. A Prabhu port was placed. Pneumo was created. The 5-mm port was placed in suprapubic region. A 12-mm port was placed in the left lower quadrant after the grasper and dissector was introduced, and the patient was found to have a large phlegmon of perforated appendix with extremely thickened edematous and extensive adhesion. First slowly lysis of adhesion was done to identify the ileum, cecum, and appendix; and it took approximately 60 to 80 minutes extra for the routine procedure just to do the lysis of adhesion, and after that the base of the appendix appeared to have necrosis as well as large appendicolith and now the procedure was converted to open, and appendix and cecum were brought out. First, appendicular cecal junction was resected with a LORI and still the patient had necrosis of the cecal wall and now another partial cecectomy was done to remove the thickened cecum as well as necrotic area of the cecum and it was sent off the table for the pathology. The periappendicular abscesses as well as the pelvic abscess was completely drained and a 19-St Lucian Cb drain was placed. Bilateral On-Q pain catheter pump was also placed, and it was connected to the bulbs, and after that proper suction irrigation of the abdominal cavity was done. The open appendectomy incision was closed in 3 layers, the peritoneum and the posterior fascia with #1 Vicryl continuous fashion, the anterior sheath as well as the muscles with #1 looped PDS continuous fashion and interrupted Prolene sutures, and skin with Monocryl. All the port sites were also closed, the fascia with 0-Vicryl, skin with 4-0 Monocryl, and dry sterile dressing was applied. The drain was secured to the skin. The patient tolerated the procedure well. Count of instrument and gauze was correct. There was no apparent complication. The patient was extubated in the OR, sent to the postanesthesia care unit in stable condition. Patricio Woody MD
[2017-11-22] MEDS: metroNIDAZOLE IV 500 mg/100 ml 500 MG/100 ML BAG IVPB SCH ×3 (02:11→18:35)
[2017-11-22] MEDS: Meropenem 1 GM in Sodium Chloride 0.9% 100 ML IVPB SCH ×3 (05:28→21:35)
[2017-11-22] MEDS: HYDROmorphone 0.5 mg/0.5 ml ISec IVP PRN ×2 (07:32→16:30)
[2017-11-22] MEDS: Enoxaparin 40 mg Syringe SC SCH (10:08)
[2017-11-22 10:12] LABS: BLOOD UREA NITROGEN 8 mg/dL (9-20); CALCIUM 8.1 mg/dl (8.6-10.4); GFR AFRICAN-AMERICAN > 60; GFR NON-AFRICAN AMERICAN > 60
--- NOTE | 2017-11-22 10:48 | CP.PCM.PN ---
<Leander Flower - Last Filed: 11/22/17 10:46> Subjective - Date & Time of Evaluation Date of Evaluation: 11/22/17 Time of Evaluation: 10:46 - Subjective Subjective: General Surgery Progress Note for Dr. Woody 62M seen and evaluated this morning at bedside. Pt resting comfortably in bed. Pain is well controlled. He had one small BM and is passing gas. He is ambulating and using his IS. No acute events overnight. Denies SOB or CP. No f/v , n/v/d. Objective - Vital Signs/Intake and Output Vital Signs (last 24 hours): Temp Pulse Resp BP Pulse Ox 99.3 F 93 H 20 145/86 96 11/22/17 07:00 11/22/17 07:00 11/22/17 07:00 11/22/17 07:00 11/22/17 07:00 - Medications Medications: Current Medications Acetaminophen (Tylenol 325mg Tab) 650 mg PO Q6 PRN PRN Reason: Fever >100.4 F Enoxaparin Sodium (Lovenox) 40 mg SC DAILY [facility] Last Admin: 11/22/17 10:08 Dose: 40 mg Hydromorphone HCl (Dilaudid) 0.5 mg IVP Q3H PRN PRN Reason: Pain, moderate (4-7) Last Admin: 11/22/17 07:32 Dose: 0.5 mg Meropenem 1 gm/ Sodium (Chloride) 100 mls @ 100 mls/hr IVPB Q8H [facility] PRN Reason: Protocol Last Admin: 11/22/17 05:28 Dose: 100 mls/hr Metronidazole (Flagyl) 500 mg in 100 mls @ 100 mls/hr IVPB Q8H [facility] PRN Reason: Protocol Last Admin: 11/22/17 10:08 Dose: 100 mls/hr BUPIVACAINE 0.125%/0.9% NACL (Bupivacaine-Ns 0.125% On-Q Manager Summer) 600 mls @ 4 mls/ hr IJ ONCE ONE Stop: 11/26/17 17:26 Last Admin: 11/20/17 12:35 Dose: 0 mls Metoprolol Tartrate (Lopressor) 100 mg PO DAILY [facility] Last Admin: 11/22/17 10:08 Dose: 100 mg Ondansetron HCl (Zofran Inj) 4 mg IVP Q6H PRN PRN Reason: Nausea/Vomiting Rosuvastatin Calcium (Crestor) 20 mg PO DAILY [facility] Last Admin: 11/22/17 10:08 Dose: 20 mg - Labs Labs: 11/21/17 07:09 11/22/17 08:11 PT 15.9 SECONDS (9.7-12.2) H 11/20/17 05:57 INR 1.5 11/20/17 05:57 APTT 29 SECONDS (21-34) 11/18/17 19:36 - Constitutional Appears: Well, Non-toxic, No Acute Distress - Eye Exam Eye Exam: EOMI, Normal appearance - Respiratory Exam Respiratory Exam: Clear to Ausculation Bilateral, NORMAL BREATHING PATTERN - Cardiovascular Exam Cardiovascular Exam: REGULAR RHYTHM, +S1, +S2. absent: Murmur - GI/Abdominal Exam GI & Abdominal Exam: Soft, Tenderness, Normal Bowel Sounds. absent: Distended Additional comments: Cb drain 60cc serosanguinous output / 24hrs dressings c/d/i Assessment and Plan - Assessment and Plan (Free Text) Assessment: 62M w/ acute appendicitis s/p laparoscopic appendectomy converted to open appendectomy, open cecectomy w/ lysis of adhesions and drainage of abdominal collection POD2 Plan: advance diet to soft encouraged to use IS and ambulate c/w IV ABx c/w pain management monitor FRANK drain output - 60cc serosanginous further recs per Dr. Annalise Flower PGY1 <Patricio Woody B - Last Filed: 11/29/17 18:24> Objective - Vital Signs/Intake and Output Vital Signs (last 24 hours): Temp Pulse Resp BP Pulse Ox 97.9 F 72 18 148/93 H 95 11/27/17 16:00 11/27/17 16:00 11/27/17 16:00 11/27/17 16:00 11/27/17 16:00 - Labs Labs: 11/27/17 08:33 11/27/17 08:33 PT 15.9 SECONDS (9.7-12.2) H 11/20/17 05:57 INR 1.5 11/20/17 05:57 APTT 29 SECONDS (21-34) 11/18/17 19:36 Attending/Attestation - Attestation I have personally seen and examined this patient.: Yes I have fully participated in the care of the patient.: Yes I have reviewed all pertinent clinical information, including history, physical exam and plan: Yes Notes (Text): Pt was seen and examined at bedside Agree with above note and assessment Pt has ileus WBC trending down C.w IV antibiotics Local wound care OOB to walk Plan d.w pt in detail
[2017-11-22] MEDS: Sodium Chloride 0.9% 1,000 ML IV SCH (13:34)
--- NOTE | 2017-11-22 15:11 | CP.PCM.PN ---
Subjective - Date & Time of Evaluation Date of Evaluation: 11/22/17 Time of Evaluation: 06:00 - Subjective Subjective: c/o swelling right arm denies fever + pain Objective - Vital Signs/Intake and Output Vital Signs (last 24 hours): Temp Pulse Resp BP Pulse Ox 99.3 F 93 H 20 145/86 96 11/22/17 07:00 11/22/17 07:00 11/22/17 07:00 11/22/17 07:00 11/22/17 07:00 - Medications Medications: Current Medications Acetaminophen (Tylenol 325mg Tab) 650 mg PO Q6 PRN PRN Reason: Fever >100.4 F Enoxaparin Sodium (Lovenox) 40 mg SC DAILY [facility] Last Admin: 11/22/17 10:08 Dose: 40 mg Hydromorphone HCl (Dilaudid) 0.5 mg IVP Q3H PRN PRN Reason: Pain, moderate (4-7) Last Admin: 11/22/17 07:32 Dose: 0.5 mg Meropenem 1 gm/ Sodium (Chloride) 100 mls @ 100 mls/hr IVPB Q8H [facility] PRN Reason: Protocol Last Admin: 11/22/17 13:34 Dose: 100 mls/hr Metronidazole (Flagyl) 500 mg in 100 mls @ 100 mls/hr IVPB Q8H [facility] PRN Reason: Protocol Last Admin: 11/22/17 10:08 Dose: 100 mls/hr BUPIVACAINE 0.125%/0.9% NACL (Bupivacaine-Ns 0.125% On-Q Accounting Professor) 600 mls @ 4 mls/ hr IJ ONCE ONE Stop: 11/26/17 17:26 Last Admin: 11/20/17 12:35 Dose: 0 mls Sodium Chloride (Sodium Chloride 0.9%) 1,000 mls @ 75 mls/hr IV .[id number] [facility] Last Admin: 11/22/17 13:34 Dose: 75 mls/hr Metoprolol Tartrate (Lopressor) 100 mg PO DAILY [facility] Last Admin: 11/22/17 10:08 Dose: 100 mg Ondansetron HCl (Zofran Inj) 4 mg IVP Q6H PRN PRN Reason: Nausea/Vomiting Rosuvastatin Calcium (Crestor) 20 mg PO DAILY [facility] Last Admin: 11/22/17 10:08 Dose: 20 mg - Labs Labs: 11/21/17 07:09 11/22/17 08:11 PT 15.9 SECONDS (9.7-12.2) H 11/20/17 05:57 INR 1.5 11/20/17 05:57 APTT 29 SECONDS (21-34) 11/18/17 19:36 - Constitutional Appears: Non-toxic, Chronically Ill - Head Exam Head Exam: NORMOCEPHALIC - Eye Exam Eye Exam: PERRL - ENT Exam ENT Exam: Mucous Membranes Dry, Normal External Ear Exam - Neck Exam Neck Exam: absent: Lymphadenopathy - Respiratory Exam Respiratory Exam: Decreased Breath Sounds - Cardiovascular Exam Cardiovascular Exam: REGULAR RHYTHM - GI/Abdominal Exam GI & Abdominal Exam: Distended - Rectal Exam Rectal Exam: Deferred - Exam Exam: NORMAL INSPECTION - Extremities Exam Extremities Exam: absent: Pedal Edema - Back Exam Back Exam: absent: CVA tenderness (L), CVA tenderness (R) - Neurological Exam Neurological Exam: Alert, Awake, Oriented x3 - Psychiatric Exam Psychiatric exam: Normal Mood - Skin Skin Exam: Dry Assessment and Plan (1) Acute appendicitis Status: Acute - Assessment and Plan (Free Text) Assessment: cellulitis right arm cont iv antibiotics check uric acid levels
--- NOTE | 2017-11-22 15:58 | CARD ---
APPROVED REPORT Date of service: 11/19/2017 EXAM: Two-dimensional and M-mode echocardiogram with Doppler and color Doppler. INDICATION Pre-Op TAVR Surgery/Intervention CABD DIMENSIONS IVSd1.4 (0.7-1.1cm)LVDd4.3 (3.9-5.9cm) LVDs2.8 (2.5-4.0cm)FS (%) 36.2 % LVEF (%)66.1 (>50%) M-Mode DIMENSIONS Left Atrium (MM)4.67 (2.5-4.0cm)IVSd1.00 (0.7-1.1cm) Aortic Root3.58 (2.2-3.7cm)LVDd5.47 (4.0-5.6cm) Aortic Cusp Exc.2.60 (1.5-2.0cm)PWd0.84 (0.7-1.1cm) FS (%) 21 %LVDs4.33 (2.0-3.8cm) LVEF (%)65 (>50%) Aortic Valve AoV Peak Qeyquldt313.4cm/sAoV VTI30.8cmAO Peak GR.12mmHg AO Mean GR.6mmHg Mitral Valve MV E Qlvsrzwo84.5cm/sMV A Zsrsmdpi74.7cm/sE/A ratio0.9 TDI E/Lateral E'0.0E/Medial E'0.0 Tricuspid Valve TR Peak Yweufzgu258hw/sTR Peak Gr.77hdUsJBKV45tcTr <Conclusion> poor window. la is moderately dilated. mild concentric lvh with normal lvef of 65-70%, normal lv diastolic fillinmg. aortic valve appears bicuspid. mild ai. sclerotic mitral leafelts with mild mr. mild tr & pi with normal pulmonary systolic pressures of 28 mm of hg. sclerotic normal size aortic root. normal size ivc. no pericardial effusion.
[2017-11-22] MEDS: Vancomycin 1 gm/NS 200 ml 1 GM/200 ML BAG IVPB SCH (16:33)
--- NOTE | 2017-11-22 18:51 | CP.PCM.PN ---
Subjective - Date & Time of Evaluation Date of Evaluation: 11/22/17 Time of Evaluation: 18:49 - Subjective Subjective: CHART REVIEWED. PT SEEN AND EXAMINED, COVERING DR Ileana HOU PT ALERT, LESS PAIN., HAVING PO DIET. ROS; OTHERWISE NEG. Objective - Vital Signs/Intake and Output Vital Signs (last 24 hours): Temp Pulse Resp BP Pulse Ox 98.5 F 80 20 143/83 95 11/22/17 17:19 11/22/17 15:08 11/22/17 15:08 11/22/17 15:08 11/22/17 15:08 - Medications Medications: Current Medications Acetaminophen (Tylenol 325mg Tab) 650 mg PO Q6 PRN PRN Reason: Fever >100.4 F Last Admin: 11/22/17 16:19 Dose: 650 mg Enoxaparin Sodium (Lovenox) 40 mg SC DAILY [facility] Last Admin: 11/22/17 10:08 Dose: 40 mg Hydromorphone HCl (Dilaudid) 0.5 mg IVP Q3H PRN PRN Reason: Pain, moderate (4-7) Last Admin: 11/22/17 16:30 Dose: 0.5 mg Meropenem 1 gm/ Sodium (Chloride) 100 mls @ 100 mls/hr IVPB Q8H [facility] PRN Reason: Protocol Last Admin: 11/22/17 13:34 Dose: 100 mls/hr Metronidazole (Flagyl) 500 mg in 100 mls @ 100 mls/hr IVPB Q8H [facility] PRN Reason: Protocol Last Admin: 11/22/17 18:35 Dose: 100 mls/hr BUPIVACAINE 0.125%/0.9% NACL (Bupivacaine-Ns 0.125% On-Q Actuarial Assistant) 600 mls @ 4 mls/ hr IJ ONCE ONE Stop: 11/26/17 17:26 Last Admin: 11/20/17 12:35 Dose: 0 mls Sodium Chloride (Sodium Chloride 0.9%) 1,000 mls @ 75 mls/hr IV .[id number] [facility] Last Admin: 11/22/17 13:34 Dose: 75 mls/hr Vancomycin/Sodium Chloride (Vancomycin 1 Gm/Ns 200 Ml) 1 gm in 200 mls @ 133.333 mls/hr IVPB Q12H [facility] PRN Reason: Protocol Stop: 11/27/17 16:31 Last Admin: 11/22/17 16:33 Dose: 133.333 mls/hr Metoprolol Tartrate (Lopressor) 100 mg PO DAILY [facility] Last Admin: 11/22/17 10:08 Dose: 100 mg Ondansetron HCl (Zofran Inj) 4 mg IVP Q6H PRN PRN Reason: Nausea/Vomiting Rosuvastatin Calcium (Crestor) 20 mg PO DAILY [facility] Last Admin: 11/22/17 10:08 Dose: 20 mg - Labs Labs: 11/21/17 07:09 11/22/17 08:11 PT 15.9 SECONDS (9.7-12.2) H 11/20/17 05:57 INR 1.5 11/20/17 05:57 APTT 29 SECONDS (21-34) 11/18/17 19:36 - Constitutional Appears: No Acute Distress - Head Exam Head Exam: ATRAUMATIC, NORMOCEPHALIC - Eye Exam Eye Exam: EOMI, Normal appearance - ENT Exam ENT Exam: Mucous Membranes Moist - Neck Exam Neck Exam: Normal Inspection - Respiratory Exam Respiratory Exam: absent: Wheezes, Respiratory Distress - Cardiovascular Exam Cardiovascular Exam: RRR, +S1, +S2 - GI/Abdominal Exam GI & Abdominal Exam: Soft Additional comments: +SURG DRESSING INTACT - Rectal Exam Rectal Exam: Deferred - Extremities Exam Extremities Exam: absent: Calf Tenderness, Pedal Edema - Back Exam Back Exam: absent: CVA tenderness (L), CVA tenderness (R) - Neurological Exam Neurological Exam: Alert, Awake, CN II-XII Intact, Oriented x3 - Psychiatric Exam Psychiatric exam: Normal Mood - Skin Skin Exam: absent: Rash Assessment and Plan (1) Hx of CABG Status: Acute (2) Hyperlipidemia Status: Acute (3) Acute appendicitis Status: Acute (4) HTN (hypertension) Status: Acute - Assessment and Plan (Free Text) Assessment: RESP STATUS COMFORTABLE. S/P APPENDECTOMY POD #2. CONT AB PER ID. PO DIET PER SURG. WOUND CARE. XRAY REVIEWED. DISCUSSED WITH STAFF.
[2017-11-23] MEDS: metroNIDAZOLE IV 500 mg/100 ml 500 MG/100 ML BAG IVPB SCH ×3 (02:15→19:36)
[2017-11-23] MEDS: HYDROmorphone 0.5 mg/0.5 ml ISec IVP PRN ×3 (02:17→16:05)
[2017-11-23] MEDS: Sodium Chloride 0.9% 1,000 ML IV SCH ×2 (02:19→17:28)
[2017-11-23] MEDS: Vancomycin 1 gm/NS 200 ml 1 GM/200 ML BAG IVPB SCH ×2 (03:29→17:28)
[2017-11-23] MEDS: Meropenem 1 GM in Sodium Chloride 0.9% 100 ML IVPB SCH ×3 (05:03→21:13)
[2017-11-23 07:34] LABS: BASO % 0.4 % (0.0-2.0); EOS # 0.5 K/uL (0.0-0.7); EOS % 5.1 % (0.0-4.0); HEMOGLOBIN 11.2 g/dL (12.0-18.0); LYMPH # 1.7 K/uL (1.0-4.3); LYMPH % 17.8 % (20.0-40.0); MEAN CELL VOLUME 86.7 fL (80.0-94.0); MEAN CORPUSCULAR HEMOGLOBIN 29.5 pg (27.0-31.0); MEAN PLATELET VOLUME 8.2 fL (7.2-11.7); MONO # 0.8 K/uL (0.0-0.8); MONO % 8.8 % (0.0-10.0); NEUT # 6.4 K/uL (1.8-7.0); NEUT % 67.9 % (50.0-75.0); RBC 3.79 Mil/uL (4.40-5.90); RED CELL DISTRIBUTION WIDTH 16.7 % (11.5-14.5); WHITE BLOOD COUNT 9.4 K/uL (4.8-10.8)
[2017-11-23 07:37] LABS: BLOOD UREA NITROGEN 8 mg/dL (9-20); GFR AFRICAN-AMERICAN > 60; GFR NON-AFRICAN AMERICAN > 60
--- NOTE | 2017-11-23 07:46 | CP.PCM.PN ---
<Taz Lim - Last Filed: 11/23/17 14:59> Subjective - Date & Time of Evaluation Date of Evaluation: 11/23/17 Time of Evaluation: 06:30 - Subjective Subjective: General Surgery Note for Dr. Woody Patient seen and examined at bedside. No acute event overnight. Patient states pain is well controlled. Patient is tolerating diet. He s passing flatus but no BM yet. He is complaining of skin reaction from tegaderm dressing. Patient has no other complaints at this time. Objective - Vital Signs/Intake and Output Vital Signs (last 24 hours): Temp Pulse Resp BP Pulse Ox 98.4 F 80 20 142/80 93 L 11/22/17 23:19 11/22/17 23:19 11/22/17 23:19 11/22/17 23:19 11/22/17 23:19 Intake and Output: 11/23/17 11/23/17 06:59 18:59 Intake Total 2120 Output Total 30 Balance 2090 - Medications Medications: Current Medications Acetaminophen (Tylenol 325mg Tab) 650 mg PO Q6 PRN PRN Reason: Fever >100.4 F Last Admin: 11/22/17 16:19 Dose: 650 mg Enoxaparin Sodium (Lovenox) 40 mg SC DAILY [facility] Last Admin: 11/22/17 10:08 Dose: 40 mg Hydromorphone HCl (Dilaudid) 0.5 mg IVP Q3H PRN PRN Reason: Pain, moderate (4-7) Last Admin: 11/23/17 02:17 Dose: 0.5 mg Meropenem 1 gm/ Sodium (Chloride) 100 mls @ 100 mls/hr IVPB Q8H [facility] PRN Reason: Protocol Last Admin: 11/23/17 05:03 Dose: 100 mls/hr Metronidazole (Flagyl) 500 mg in 100 mls @ 100 mls/hr IVPB Q8H [facility] PRN Reason: Protocol Last Admin: 11/23/17 02:15 Dose: 100 mls/hr BUPIVACAINE 0.125%/0.9% NACL (Bupivacaine-Ns 0.125% On-Q [employer] Assistant) 600 mls @ 4 mls/ hr IJ ONCE ONE Stop: 11/26/17 17:26 Last Admin: 11/20/17 12:35 Dose: 0 mls Sodium Chloride (Sodium Chloride 0.9%) 1,000 mls @ 75 mls/hr IV .[id number] [facility] Last Admin: 11/23/17 02:19 Dose: 75 mls/hr Vancomycin/Sodium Chloride (Vancomycin 1 Gm/Ns 200 Ml) 1 gm in 200 mls @ 133.333 mls/hr IVPB Q12H [facility] PRN Reason: Protocol Stop: 11/27/17 16:31 Last Admin: 11/23/17 03:29 Dose: 133.333 mls/hr Metoprolol Tartrate (Lopressor) 100 mg PO DAILY [facility] Last Admin: 11/22/17 10:08 Dose: 100 mg Ondansetron HCl (Zofran Inj) 4 mg IVP Q6H PRN PRN Reason: Nausea/Vomiting Rosuvastatin Calcium (Crestor) 20 mg PO DAILY [facility] Last Admin: 11/22/17 10:08 Dose: 20 mg - Labs Labs: 11/23/17 07:00 11/23/17 07:00 PT 15.9 SECONDS (9.7-12.2) H 11/20/17 05:57 INR 1.5 11/20/17 05:57 APTT 29 SECONDS (21-34) 11/18/17 19:36 - Constitutional Appears: Non-toxic, No Acute Distress - Head Exam Head Exam: ATRAUMATIC, NORMOCEPHALIC - Eye Exam Eye Exam: EOMI, Normal appearance Pupil Exam: PERRL - ENT Exam ENT Exam: Mucous Membranes Moist - Respiratory Exam Respiratory Exam: NORMAL BREATHING PATTERN - Cardiovascular Exam Cardiovascular Exam: REGULAR RHYTHM - GI/Abdominal Exam GI & Abdominal Exam: Soft. absent: Distended, Firm, Guarding, Rigid, Tenderness , Rebound Additional comments: Cb drain 30 cc serosanguinous output over 24hrs dressings clean dry and intact blisters from large tegaderm in RLQ - Neurological Exam Neurological Exam: Alert, Awake, Oriented x3 - Psychiatric Exam Psychiatric exam: Normal Affect, Normal Mood - Skin Skin Exam: Dry, Warm Assessment and Plan - Assessment and Plan (Free Text) Assessment: 62M with acute appendicitis s/p laparoscopic appendectomy converted to open appendectomy, open cecectomy w/ lysis of adhesions and drainage of abdominal collection POD#3 Plan: Soft diet, ADAT encourage OOB to chair/IS/ambulate IV Antibiotics Continue pain management Strict I's & O's Dulcolax suppository Monitor Bowel function Further recommendations as per Dr. Annalise Lim PGY2 <Patricio Woody - Last Filed: 11/29/17 18:53> Objective - Vital Signs/Intake and Output Vital Signs (last 24 hours): Temp Pulse Resp BP Pulse Ox 97.9 F 72 18 148/93 H 95 11/27/17 16:00 11/27/17 16:00 11/27/17 16:00 11/27/17 16:00 11/27/17 16:00 - Labs Labs: 11/27/17 08:33 11/27/17 08:33 PT 15.9 SECONDS (9.7-12.2) H 11/20/17 05:57 INR 1.5 11/20/17 05:57 APTT 29 SECONDS (21-34) 11/18/17 19:36 Attending/Attestation - Attestation I have personally seen and examined this patient.: Yes I have fully participated in the care of the patient.: Yes I have reviewed all pertinent clinical information, including history, physical exam and plan: Yes Notes (Text): Pt was seen and examined at bedside Agree with above note and assessment Pt is improving clinically OOB to walk Local wound care IV antibiotics Plan d.w pt in detail
[2017-11-23] MEDS: Enoxaparin 40 mg Syringe SC SCH (09:27)
--- NOTE | 2017-11-23 12:31 | CP.PCM.PN ---
Subjective - Date & Time of Evaluation Date of Evaluation: 11/23/17 Time of Evaluation: 07:00 - Subjective Subjective: cellulitis right arm iv vanco added Objective - Vital Signs/Intake and Output Vital Signs (last 24 hours): Temp Pulse Resp BP Pulse Ox 98.2 F 83 20 145/82 94 L 11/23/17 08:00 11/23/17 08:00 11/23/17 08:00 11/23/17 08:00 11/23/17 08:00 Intake and Output: 11/23/17 11/23/17 06:59 18:59 Intake Total 2120 Output Total 30 Balance 0 - Medications Medications: Current Medications Acetaminophen (Tylenol 325mg Tab) 650 mg PO Q6 PRN PRN Reason: Fever >100.4 F Last Admin: 11/22/17 16:19 Dose: 650 mg Enoxaparin Sodium (Lovenox) 40 mg SC DAILY [facility] Last Admin: 11/23/17 09:27 Dose: 40 mg Hydromorphone HCl (Dilaudid) 0.5 mg IVP Q3H PRN PRN Reason: Pain, moderate (4-7) Last Admin: 11/23/17 10:50 Dose: 0.5 mg Meropenem 1 gm/ Sodium (Chloride) 100 mls @ 100 mls/hr IVPB Q8H [facility] PRN Reason: Protocol Last Admin: 11/23/17 05:03 Dose: 100 mls/hr Metronidazole (Flagyl) 500 mg in 100 mls @ 100 mls/hr IVPB Q8H [facility] PRN Reason: Protocol Last Admin: 11/23/17 02:15 Dose: 100 mls/hr BUPIVACAINE 0.125%/0.9% NACL (Bupivacaine-Ns 0.125% On-Q Row Boss Hoeing) 600 mls @ 4 mls/ hr IJ ONCE ONE Stop: 11/26/17 17:26 Last Admin: 11/20/17 12:35 Dose: 0 mls Sodium Chloride (Sodium Chloride 0.9%) 1,000 mls @ 75 mls/hr IV .[id number] [facility] Last Admin: 11/23/17 02:19 Dose: 75 mls/hr Vancomycin/Sodium Chloride (Vancomycin 1 Gm/Ns 200 Ml) 1 gm in 200 mls @ 133.333 mls/hr IVPB Q12H [facility] PRN Reason: Protocol Stop: 11/27/17 16:31 Last Admin: 11/23/17 03:29 Dose: 133.333 mls/hr Metoprolol Tartrate (Lopressor) 100 mg PO DAILY [facility] Last Admin: 11/23/17 09:27 Dose: 100 mg Ondansetron HCl (Zofran Inj) 4 mg IVP Q6H PRN PRN Reason: Nausea/Vomiting Rosuvastatin Calcium (Crestor) 20 mg PO DAILY [facility] Last Admin: 11/23/17 09:27 Dose: 20 mg - Labs Labs: 11/23/17 07:00 11/23/17 07:00 PT 15.9 SECONDS (9.7-12.2) H 11/20/17 05:57 INR 1.5 11/20/17 05:57 APTT 29 SECONDS (21-34) 11/18/17 19:36 - Constitutional Appears: Non-toxic, Chronically Ill - Head Exam Head Exam: NORMOCEPHALIC - Eye Exam Eye Exam: PERRL - ENT Exam ENT Exam: Mucous Membranes Dry - Neck Exam Neck Exam: absent: Lymphadenopathy - Respiratory Exam Respiratory Exam: Decreased Breath Sounds - Cardiovascular Exam Cardiovascular Exam: REGULAR RHYTHM - GI/Abdominal Exam GI & Abdominal Exam: Distended Assessment and Plan (1) Acute appendicitis Status: Acute - Assessment and Plan (Free Text) Assessment: cont iv rx
--- NOTE | 2017-11-23 14:25 | CP.PCM.PN ---
Subjective - Date & Time of Evaluation Date of Evaluation: 11/23/17 Time of Evaluation: 14:22 - Subjective Subjective: COVERING DR Ileana HOU PT ALERT, OOB IN CHAIR., NO SOB., HAD PO DIET., RUE SWELLING AND PAIN., ROS; OTHERWISE NEG. Objective - Vital Signs/Intake and Output Vital Signs (last 24 hours): Temp Pulse Resp BP Pulse Ox 98.2 F 83 20 145/82 94 L 11/23/17 08:00 11/23/17 08:00 11/23/17 08:00 11/23/17 08:00 11/23/17 08:00 Intake and Output: 11/23/17 11/23/17 06:59 18:59 Intake Total 2120 Output Total 30 Balance 2089 - Medications Medications: Current Medications Acetaminophen (Tylenol 325mg Tab) 650 mg PO Q6 PRN PRN Reason: Fever >100.4 F Last Admin: 11/22/17 16:19 Dose: 650 mg Enoxaparin Sodium (Lovenox) 40 mg SC DAILY [facility] Last Admin: 11/23/17 09:27 Dose: 40 mg Hydromorphone HCl (Dilaudid) 0.5 mg IVP Q3H PRN PRN Reason: Pain, moderate (4-7) Last Admin: 11/23/17 10:50 Dose: 0.5 mg Meropenem 1 gm/ Sodium (Chloride) 100 mls @ 100 mls/hr IVPB Q8H [facility] PRN Reason: Protocol Last Admin: 11/23/17 05:03 Dose: 100 mls/hr Metronidazole (Flagyl) 500 mg in 100 mls @ 100 mls/hr IVPB Q8H [facility] PRN Reason: Protocol Last Admin: 11/23/17 12:33 Dose: 100 mls/hr BUPIVACAINE 0.125%/0.9% NACL (Bupivacaine-Ns 0.125% On-Q Shift Stacker) 600 mls @ 4 mls/ hr IJ ONCE ONE Stop: 11/26/17 17:26 Last Admin: 11/20/17 12:35 Dose: 0 mls Sodium Chloride (Sodium Chloride 0.9%) 1,000 mls @ 75 mls/hr IV .[id number] [facility] Last Admin: 11/23/17 02:19 Dose: 75 mls/hr Vancomycin/Sodium Chloride (Vancomycin 1 Gm/Ns 200 Ml) 1 gm in 200 mls @ 133.333 mls/hr IVPB Q12H [facility] PRN Reason: Protocol Stop: 11/27/17 16:31 Last Admin: 11/23/17 03:29 Dose: 133.333 mls/hr Metoprolol Tartrate (Lopressor) 100 mg PO DAILY [facility] Last Admin: 11/23/17 09:27 Dose: 100 mg Ondansetron HCl (Zofran Inj) 4 mg IVP Q6H PRN PRN Reason: Nausea/Vomiting Rosuvastatin Calcium (Crestor) 20 mg PO DAILY [facility] Last Admin: 11/23/17 09:27 Dose: 20 mg - Labs Labs: 11/23/17 07:00 11/23/17 07:00 PT 15.9 SECONDS (9.7-12.2) H 11/20/17 05:57 INR 1.5 11/20/17 05:57 APTT 29 SECONDS (21-34) 11/18/17 19:36 - Constitutional Appears: No Acute Distress - Head Exam Head Exam: ATRAUMATIC, NORMOCEPHALIC - Eye Exam Eye Exam: EOMI, Normal appearance - ENT Exam ENT Exam: Mucous Membranes Moist - Neck Exam Neck Exam: Normal Inspection - Respiratory Exam Respiratory Exam: Decreased Breath Sounds. absent: Wheezes, Respiratory Distress - Cardiovascular Exam Cardiovascular Exam: RRR, +S1, +S2 - GI/Abdominal Exam GI & Abdominal Exam: Soft Additional comments: +SURG DRESSINGS INTACT. +FRANK DRAIN - Rectal Exam Rectal Exam: Deferred - Extremities Exam Extremities Exam: absent: Calf Tenderness, Pedal Edema Additional comments: RUE EDEMA MILD ERYTHEMA. +TENDER - Back Exam Back Exam: absent: CVA tenderness (L), CVA tenderness (R) - Neurological Exam Neurological Exam: Alert, Awake, CN II-XII Intact, Oriented x3 - Psychiatric Exam Psychiatric exam: Normal Mood - Skin Skin Exam: absent: Rash Assessment and Plan (1) Hx of CABG Status: Acute (2) Hyperlipidemia Status: Acute (3) Acute appendicitis Status: Acute (4) HTN (hypertension) Status: Acute - Assessment and Plan (Free Text) Assessment: RESP STATUS COMFORTABLE., CONT PULM TOILET. ENCOURAGE INCENT. SPIROM., RUE + CELLULITIS NOTED, ON AB PER ID., CHECK DOPPLER., PO DIET PER SURG. S/P APPENDECTOMY POD #3 . CXR REVIEWED., PROG GUARDED. DISCUSSED WITH STAFF AT LENGTH AND FAMILY AT BEDSIDE.
[2017-11-24] MEDS: metroNIDAZOLE IV 500 mg/100 ml 500 MG/100 ML BAG IVPB SCH ×3 (03:39→18:33)
[2017-11-24] MEDS: Vancomycin 1 gm/NS 200 ml 1 GM/200 ML BAG IVPB SCH ×2 (03:39→14:09)
[2017-11-24] MEDS: Sodium Chloride 0.9% 1,000 ML IV SCH ×3 (03:40→17:40)
[2017-11-24] MEDS: HYDROmorphone 0.5 mg/0.5 ml ISec IVP PRN ×2 (03:48→09:48)
[2017-11-24] MEDS: Meropenem 1 GM in Sodium Chloride 0.9% 100 ML IVPB SCH ×3 (05:27→21:11)
[2017-11-24 06:36] LABS: BASO % 0.4 % (0.0-2.0); EOS # 0.9 K/uL (0.0-0.7); EOS % 9.8 % (0.0-4.0); HEMOGLOBIN 11.4 g/dL (12.0-18.0); LYMPH # 1.5 K/uL (1.0-4.3); LYMPH % 17.2 % (20.0-40.0); MEAN CELL VOLUME 86.2 fL (80.0-94.0); MEAN CORPUSCULAR HEMOGLOBIN 29.5 pg (27.0-31.0); MEAN CORPUSCULAR HGB CONC 34.2 g/dL (33.0-37.0); MEAN PLATELET VOLUME 7.6 fL (7.2-11.7); MONO # 0.7 K/uL (0.0-0.8); MONO % 8.3 % (0.0-10.0); NEUT # 5.7 K/uL (1.8-7.0); NEUT % 64.3 % (50.0-75.0); RBC 3.87 Mil/uL (4.40-5.90); RED CELL DISTRIBUTION WIDTH 16.6 % (11.5-14.5); WHITE BLOOD COUNT 8.9 K/uL (4.8-10.8)
[2017-11-24 06:45] LABS: BLOOD UREA NITROGEN 9 mg/dL (9-20); CALCIUM 8.1 mg/dl (8.6-10.4); GFR AFRICAN-AMERICAN > 60; GFR NON-AFRICAN AMERICAN > 60
--- NOTE | 2017-11-24 06:47 | CP.PCM.PN ---
<Taz Lim - Last Filed: 11/24/17 07:05> Subjective - Date & Time of Evaluation Date of Evaluation: 11/24/17 Time of Evaluation: 05:59 - Subjective Subjective: General Surgery Note for Dr. Woody Patient seen and examined at bedside. No acute event overnight. He is s/p laparoscopic appendectomy converted to open appendectomy, open cecectomy with lysis of adhesions and drainage of abdominal collection POD#4. Patient states pain is well controlled. Patient is tolerating soft diet. He is passing flatus. Patient admits to BM yesterday. He states that he has been OOB to chair an ambulating. He reports using incentive spirometer. Patient has no complaints at this time. Objective - Vital Signs/Intake and Output Vital Signs (last 24 hours): Temp Pulse Resp BP Pulse Ox 97.8 F 78 20 147/83 95 11/24/17 00:00 11/24/17 00:00 11/24/17 00:00 11/24/17 00:00 11/24/17 00:00 Intake and Output: 11/23/17 11/24/17 18:59 06:59 Intake Total 600 2200 Output Total 665 2014 Balance -65 185 - Medications Medications: Current Medications Acetaminophen (Tylenol 325mg Tab) 650 mg PO Q6 PRN PRN Reason: Fever >100.4 F Last Admin: 11/22/17 16:19 Dose: 650 mg Enoxaparin Sodium (Lovenox) 40 mg SC DAILY [facility] Last Admin: 11/23/17 09:27 Dose: 40 mg Hydromorphone HCl (Dilaudid) 0.5 mg IVP Q3H PRN PRN Reason: Pain, moderate (4-7) Last Admin: 11/24/17 03:48 Dose: 0.5 mg Meropenem 1 gm/ Sodium (Chloride) 100 mls @ 100 mls/hr IVPB Q8H [facility] PRN Reason: Protocol Last Admin: 11/24/17 05:27 Dose: 100 mls/hr Metronidazole (Flagyl) 500 mg in 100 mls @ 100 mls/hr IVPB Q8H [facility] PRN Reason: Protocol Last Admin: 11/24/17 03:39 Dose: 100 mls/hr BUPIVACAINE 0.125%/0.9% NACL (Bupivacaine-Ns 0.125% On-Q [employer] Web Developer) 600 mls @ 4 mls/ hr IJ ONCE ONE Stop: 11/26/17 17:26 Last Admin: 11/20/17 12:35 Dose: 0 mls Sodium Chloride (Sodium Chloride 0.9%) 1,000 mls @ 75 mls/hr IV .[id number] [facility] Last Admin: 11/24/17 05:31 Dose: Not Given Vancomycin/Sodium Chloride (Vancomycin 1 Gm/Ns 200 Ml) 1 gm in 200 mls @ 133.333 mls/hr IVPB Q12H [facility] PRN Reason: Protocol Stop: 11/27/17 16:31 Last Admin: 11/24/17 03:39 Dose: 133.333 mls/hr Metoprolol Tartrate (Lopressor) 100 mg PO DAILY [facility] Last Admin: 11/23/17 09:27 Dose: 100 mg Ondansetron HCl (Zofran Inj) 4 mg IVP Q6H PRN PRN Reason: Nausea/Vomiting Rosuvastatin Calcium (Crestor) 20 mg PO DAILY [facility] Last Admin: 11/23/17 09:27 Dose: 20 mg - Labs Labs: 11/24/17 06:20 11/24/17 06:20 PT 15.9 SECONDS (9.7-12.2) H 11/20/17 05:57 INR 1.5 11/20/17 05:57 APTT 29 SECONDS (21-34) 11/18/17 19:36 - Additional Findings Additional findings: - Constitutional Appears: Non-toxic, No Acute Distress - Head Exam Head Exam: ATRAUMATIC, NORMOCEPHALIC - Eye Exam Eye Exam: EOMI, Normal appearance Pupil Exam: PERRL - ENT Exam ENT Exam: Mucous Membranes Moist - Respiratory Exam Respiratory Exam: NORMAL BREATHING PATTERN - Cardiovascular Exam Cardiovascular Exam: REGULAR RHYTHM - GI/Abdominal Exam GI & Abdominal Exam: Soft. absent: Distended, Firm, Guarding, Rigid, Tenderness , Rebound Additional comments: Cb drain 5cc serosanguinous output over 12hrs dressings clean dry and intact blisters from tegderm reaction - Neurological Exam Neurological Exam: Alert, Awake, Oriented x3 - Psychiatric Exam Psychiatric exam: Normal Affect, Normal Mood - Skin Skin Exam: Dry, Warm Assessment and Plan - Assessment and Plan (Free Text) Assessment: 62M with acute appendicitis s/p laparoscopic appendectomy converted to open appendectomy, open cecectomy w/ lysis of adhesions and drainage of abdominal collection POD#4 Plan: Soft diet, ADAT encourage OOB to chair/IS/ambulate IV Antibiotics Continue pain management (ON-Q) Strict I's & O's Monitor Bowel function Further recommendations as per Dr. Annalise Lim PGY2 <Patricio Woody B - Last Filed: 11/29/17 19:09> Objective - Vital Signs/Intake and Output Vital Signs (last 24 hours): Temp Pulse Resp BP Pulse Ox 97.9 F 72 18 148/93 H 95 11/27/17 16:00 11/27/17 16:00 11/27/17 16:00 11/27/17 16:00 11/27/17 16:00 - Labs Labs: 11/27/17 08:33 11/27/17 08:33 PT 15.9 SECONDS (9.7-12.2) H 11/20/17 05:57 INR 1.5 11/20/17 05:57 APTT 29 SECONDS (21-34) 11/18/17 19:36 Attending/Attestation - Attestation I have personally seen and examined this patient.: Yes I have fully participated in the care of the patient.: Yes I have reviewed all pertinent clinical information, including history, physical exam and plan: Yes Notes (Text): Pt was seen and examined at bedside Agree with above note and assessment Pt has intestinal ileus c/w liquid diet IV antibiotics Local wound care Plan d.w pt in detail
[2017-11-24] MEDS: Enoxaparin 40 mg Syringe SC SCH (09:42)
--- NOTE | 2017-11-24 10:57 | CP.PCM.PN ---
Subjective - Date & Time of Evaluation Date of Evaluation: 11/24/17 Time of Evaluation: 10:53 - Subjective Subjective: COVERING DR Ileana HOU. PT ALERT, OOB IN CHAIR., LESS PAIN., +RIGHT ARM DISCOMFORT. ROS; OTHERWISE NEG. Objective - Vital Signs/Intake and Output Vital Signs (last 24 hours): Temp Pulse Resp BP Pulse Ox 97.4 F L 73 20 151/94 H 95 11/24/17 07:35 11/24/17 07:35 11/24/17 07:35 11/24/17 07:35 11/24/17 07:35 Intake and Output: 11/24/17 11/24/17 06:59 18:59 Intake Total 2200 Output Total 2024 Balance 175 - Medications Medications: Current Medications Acetaminophen (Tylenol 325mg Tab) 650 mg PO Q6 PRN PRN Reason: Fever >100.4 F Last Admin: 11/22/17 16:19 Dose: 650 mg Enoxaparin Sodium (Lovenox) 40 mg SC DAILY [facility] Last Admin: 11/24/17 09:42 Dose: 40 mg Hydromorphone HCl (Dilaudid) 0.5 mg IVP Q3H PRN PRN Reason: Pain, moderate (4-7) Last Admin: 11/24/17 09:48 Dose: 0.5 mg Meropenem 1 gm/ Sodium (Chloride) 100 mls @ 100 mls/hr IVPB Q8H [facility] PRN Reason: Protocol Last Admin: 11/24/17 05:27 Dose: 100 mls/hr Metronidazole (Flagyl) 500 mg in 100 mls @ 100 mls/hr IVPB Q8H [facility] PRN Reason: Protocol Last Admin: 11/24/17 10:13 Dose: 100 mls/hr BUPIVACAINE 0.125%/0.9% NACL (Bupivacaine-Ns 0.125% On-Q Care Program Resident) 600 mls @ 4 mls/ hr IJ ONCE ONE Stop: 11/26/17 17:26 Last Admin: 11/20/17 12:35 Dose: 0 mls Sodium Chloride (Sodium Chloride 0.9%) 1,000 mls @ 75 mls/hr IV .[id number] [facility] Last Admin: 11/24/17 05:31 Dose: Not Given Vancomycin/Sodium Chloride (Vancomycin 1 Gm/Ns 200 Ml) 1 gm in 200 mls @ 133.333 mls/hr IVPB Q12H [facility] PRN Reason: Protocol Stop: 11/27/17 16:31 Last Admin: 11/24/17 03:39 Dose: 133.333 mls/hr Metoprolol Tartrate (Lopressor) 100 mg PO DAILY [facility] Last Admin: 11/24/17 09:42 Dose: 100 mg Ondansetron HCl (Zofran Inj) 4 mg IVP Q6H PRN PRN Reason: Nausea/Vomiting Rosuvastatin Calcium (Crestor) 20 mg PO DAILY [facility] Last Admin: 11/24/17 09:42 Dose: 20 mg - Labs Labs: 11/24/17 06:20 11/24/17 06:20 PT 15.9 SECONDS (9.7-12.2) H 11/20/17 05:57 INR 1.5 11/20/17 05:57 APTT 29 SECONDS (21-34) 11/18/17 19:36 - Constitutional Appears: Non-toxic, No Acute Distress - Head Exam Head Exam: ATRAUMATIC, NORMOCEPHALIC - Eye Exam Eye Exam: EOMI, Normal appearance - ENT Exam ENT Exam: Mucous Membranes Moist - Neck Exam Neck Exam: Normal Inspection - Respiratory Exam Respiratory Exam: Decreased Breath Sounds. absent: Wheezes, Respiratory Distress - Cardiovascular Exam Cardiovascular Exam: RRR, +S1, +S2 - GI/Abdominal Exam GI & Abdominal Exam: Soft Additional comments: +SURG DRESSING - Rectal Exam Rectal Exam: Deferred - Extremities Exam Extremities Exam: absent: Calf Tenderness, Pedal Edema Additional comments: RUE +EDEMA - Back Exam Back Exam: absent: CVA tenderness (L), CVA tenderness (R) - Neurological Exam Neurological Exam: Alert, Awake, CN II-XII Intact, Oriented x3 - Psychiatric Exam Psychiatric exam: Normal Mood - Skin Skin Exam: absent: Rash Assessment and Plan (1) Hx of CABG Status: Acute (2) Hyperlipidemia Status: Acute (3) Acute appendicitis Status: Acute (4) HTN (hypertension) Status: Acute - Assessment and Plan (Free Text) Assessment: RESP STATUS NO SIG CHANGE. CONT PULM TOILET., INCENT. SPIROM., S/P APPENDECTOMY POD #4. SURG F/U NOTED. CXR REVIEWED. UE DOPPLER PENDING +RUE CELLULITIS, R/O DVT. PROG GUARDED. DISCUSSED WITH STAFF.
--- NOTE | 2017-11-24 13:06 | CP.PCM.PN ---
Subjective - Date & Time of Evaluation Date of Evaluation: 11/24/17 Time of Evaluation: 09:00 - Subjective Subjective: s/p laparoscopic appendectomy converted to open appendectomy, open cecectomy with lysis of adhesions and drainage of abdominal collection POD#4 Objective - Vital Signs/Intake and Output Vital Signs (last 24 hours): Temp Pulse Resp BP Pulse Ox 97.4 F L 73 20 151/94 H 95 11/24/17 07:35 11/24/17 07:35 11/24/17 07:35 11/24/17 07:35 11/24/17 07:35 Intake and Output: 11/24/17 11/24/17 06:59 18:59 Intake Total 2200 Output Total 2024 Balance 175 - Medications Medications: Current Medications Acetaminophen (Tylenol 325mg Tab) 650 mg PO Q6 PRN PRN Reason: Fever >100.4 F Last Admin: 11/22/17 16:19 Dose: 650 mg Enoxaparin Sodium (Lovenox) 40 mg SC DAILY [facility] Last Admin: 11/24/17 09:42 Dose: 40 mg Meropenem 1 gm/ Sodium (Chloride) 100 mls @ 100 mls/hr IVPB Q8H [facility] PRN Reason: Protocol Last Admin: 11/24/17 05:27 Dose: 100 mls/hr Metronidazole (Flagyl) 500 mg in 100 mls @ 100 mls/hr IVPB Q8H [facility] PRN Reason: Protocol Last Admin: 11/24/17 10:13 Dose: 100 mls/hr BUPIVACAINE 0.125%/0.9% NACL (Bupivacaine-Ns 0.125% On-Q Human Relations Professor) 600 mls @ 4 mls/ hr IJ ONCE ONE Stop: 11/26/17 17:26 Last Admin: 11/20/17 12:35 Dose: 0 mls Sodium Chloride (Sodium Chloride 0.9%) 1,000 mls @ 75 mls/hr IV .[id number] [facility] Last Admin: 11/24/17 05:31 Dose: Not Given Vancomycin/Sodium Chloride (Vancomycin 1 Gm/Ns 200 Ml) 1 gm in 200 mls @ 133.333 mls/hr IVPB Q12H [facility] PRN Reason: Protocol Stop: 11/27/17 16:31 Last Admin: 11/24/17 03:39 Dose: 133.333 mls/hr Metoprolol Tartrate (Lopressor) 100 mg PO DAILY [facility] Last Admin: 11/24/17 09:42 Dose: 100 mg Ondansetron HCl (Zofran Inj) 4 mg IVP Q6H PRN PRN Reason: Nausea/Vomiting Rosuvastatin Calcium (Crestor) 20 mg PO DAILY [facility] Last Admin: 11/24/17 09:42 Dose: 20 mg - Labs Labs: 11/24/17 06:20 11/24/17 06:20 PT 15.9 SECONDS (9.7-12.2) H 11/20/17 05:57 INR 1.5 11/20/17 05:57 APTT 29 SECONDS (21-34) 11/18/17 19:36 - Constitutional Appears: Non-toxic, Chronically Ill - Head Exam Head Exam: NORMOCEPHALIC - Eye Exam Eye Exam: PERRL - ENT Exam ENT Exam: Mucous Membranes Dry - Neck Exam Neck Exam: absent: Lymphadenopathy - Respiratory Exam Respiratory Exam: Decreased Breath Sounds - Cardiovascular Exam Cardiovascular Exam: REGULAR RHYTHM - GI/Abdominal Exam GI & Abdominal Exam: Distended, Soft - Rectal Exam Rectal Exam: Deferred - Exam Exam: NORMAL INSPECTION Assessment and Plan (1) Acute appendicitis Status: Acute - Assessment and Plan (Free Text) Assessment: s/p laparoscopic appendectomy converted to open appendectomy, open cecectomy with lysis of adhesions and drainage of abdominal collection POD#4
[2017-11-24] MEDS ORDERED: Potassium Chloride 20 mEq ER Tab PO ONE (14:00)
[2017-11-25] MEDS: metroNIDAZOLE IV 500 mg/100 ml 500 MG/100 ML BAG IVPB SCH ×2 (02:07→10:16)
[2017-11-25] MEDS: Meropenem 1 GM in Sodium Chloride 0.9% 100 ML IVPB SCH ×3 (05:01→21:05)
[2017-11-25 08:24] LABS: HEMOGLOBIN 11.5 g/dL (12.0-18.0); MEAN CELL VOLUME 85.9 fL (80.0-94.0); MEAN CORPUSCULAR HEMOGLOBIN 29.5 pg (27.0-31.0); MEAN CORPUSCULAR HGB CONC 34.4 g/dL (33.0-37.0); MEAN PLATELET VOLUME 7.6 fL (7.2-11.7); RBC 3.91 Mil/uL (4.40-5.90); RED CELL DISTRIBUTION WIDTH 16.6 % (11.5-14.5); WHITE BLOOD COUNT 8.6 K/uL (4.8-10.8)
[2017-11-25 08:44] LABS: BLOOD UREA NITROGEN 7 mg/dL (9-20); CALCIUM 8.5 mg/dl (8.6-10.4); GFR AFRICAN-AMERICAN > 60; GFR NON-AFRICAN AMERICAN > 60
[2017-11-25] MEDS: Enoxaparin 40 mg Syringe SC SCH (10:15)
--- NOTE | 2017-11-25 11:07 | VASCLAB ---
Date of service: 11/24/2017 PROCEDURE: Right Upper Extremity Venous Duplex Exam HISTORY: Right arm swelling PRIORS: None. TECHNIQUE: Right upper extremity, internal jugular, subclavian, axillary, brachial, ulnar, radial, basilic and upper cephalic veins were evaluated. Flow was assessed with color Doppler, compressibility, assessment of phasic flow and augmentation response. Report prepared by Claude Hurtado, MEL, RVT FINDINGS: RIGHT: 1. Internal Jugular: 1.1. Compressibility - Fully compressible: Thrombus - None : Flow - Phasic: Augmentation -Normal: Reflux - None. 2. Subclavian: 2.1. Compressibility - Fully compressible: Thrombus - None : Flow - Phasic: Augmentation -Normal: Reflux - None. 3. Axillary: 3.1. Compressibility - Fully compressible: Thrombus - None : Flow - Phasic: Augmentation -Normal: Reflux - None. 4. Brachial: 4.1. Compressibility - Fully compressible: Thrombus - None: Flow - Phasic: Augmentation -Normal: Reflux - None. 5. Ulnar: 5.1. Compressibility - Fully compressible: Thrombus - None: Flow - Phasic: Augmentation -Normal: Reflux - None. 6. Radial: 6.1. Compressibility - Fully compressible: Thrombus - None: Flow - Phasic: Augmentation - Normal: Reflux - None. 7. Cephalic: 7.1. Compressibility - Incompressible: Thrombus - Acute: Flow - Absent : Augmentation -Normal: Reflux - None. 8. Basilic: 8.1. Compressibility - Fully compressible: Thrombus - None: Flow - Phasic: Augmentation -Normal: Reflux - None. OTHER FINDINGS: Normal venous flow noted in the LEFT internal jugular and left subclavian veins. IMPRESSION: Right: 1. Superficial phlebitis of the right cephalic vein, at the distal upper arm and antecubital levels. 2. No evidence of deep vein thrombosis of the right upper extremity with excellent venous flow. Findings were reported by the nuclear medicine technologist to Zaki Leo.
[2017-11-25] MEDS: Sodium Chloride 0.9% 1,000 ML IV SCH (11:49)
--- NOTE | 2017-11-25 12:30 | CP.PCM.PN ---
Addendum entered and electronically signed by Taz Lim DO 11/25/17 17:36 : Patient may go home 11/26 on oral antibiotics. Original Note: <Taz Lim - Last Filed: 11/25/17 12:48> Subjective - Date & Time of Evaluation Date of Evaluation: 11/25/17 Time of Evaluation: 10:30 - Subjective Subjective: General Surgery Note for Dr. Woody Patient seen and examined at bedside. No acute event overnight. Patient denies pain. He is tolerating diet. He admit to passsing flatus and having BM. Patient has been OOB to chair, ambulating and using incentive spirometer. Patient has no complaints today. Objective - Vital Signs/Intake and Output Vital Signs (last 24 hours): Temp Pulse Resp BP Pulse Ox 97.9 F 83 20 149/89 95 11/25/17 08:00 11/25/17 08:00 11/25/17 08:00 11/25/17 08:00 11/25/17 08:00 Intake and Output: 11/25/17 11/25/17 06:59 18:59 Intake Total 1400 Output Total 2285 Balance -885 - Medications Medications: Current Medications Acetaminophen (Tylenol 325mg Tab) 650 mg PO Q6 PRN PRN Reason: Fever >100.4 F Last Admin: 11/22/17 16:19 Dose: 650 mg Enoxaparin Sodium (Lovenox) 40 mg SC DAILY [facility] Last Admin: 11/25/17 10:15 Dose: 40 mg Meropenem 1 gm/ Sodium (Chloride) 100 mls @ 100 mls/hr IVPB Q8H [facility] PRN Reason: Protocol Last Admin: 11/25/17 05:01 Dose: 100 mls/hr Vancomycin/Sodium Chloride (Vancomycin 1 Gm/Ns 200 Ml) 1 gm in 200 mls @ 133.333 mls/hr IVPB Q24H [facility] PRN Reason: Protocol Stop: 11/29/17 14:31 Last Admin: 11/24/17 14:09 Dose: 133.333 mls/hr Metoprolol Tartrate (Lopressor) 100 mg PO DAILY [facility] Last Admin: 11/25/17 10:15 Dose: 100 mg Ondansetron HCl (Zofran Inj) 4 mg IVP Q6H PRN PRN Reason: Nausea/Vomiting Rosuvastatin Calcium (Crestor) 20 mg PO HS [facility] - Labs Labs: 11/25/17 08:11 11/25/17 08:11 PT 15.9 SECONDS (9.7-12.2) H 11/20/17 05:57 INR 1.5 11/20/17 05:57 APTT 29 SECONDS (21-34) 11/18/17 19:36 - Constitutional Appears: No Acute Distress - Head Exam Head Exam: ATRAUMATIC, NORMOCEPHALIC - Eye Exam Eye Exam: EOMI, Normal appearance Pupil Exam: PERRL - ENT Exam ENT Exam: Mucous Membranes Moist - Respiratory Exam Respiratory Exam: NORMAL BREATHING PATTERN - Cardiovascular Exam Cardiovascular Exam: REGULAR RHYTHM - GI/Abdominal Exam GI & Abdominal Exam: Soft, Normal Bowel Sounds. absent: Distended, Firm, Guarding, Rigid, Tenderness, Rebound Additional comments: Large blister on right abdomen - covered with optiform Steri-strips in place on surgical sites Cb drain in place with 55 cc of serosanguinous output over 24 hrs - Neurological Exam Neurological Exam: Alert, Awake, Oriented x3 - Psychiatric Exam Psychiatric exam: Normal Affect, Normal Mood - Skin Skin Exam: Dry, Warm Assessment and Plan - Assessment and Plan (Free Text) Assessment: 62M with acute appendicitis s/p laparoscopic appendectomy converted to open appendectomy, open cecectomy w/ lysis of adhesions and drainage of abdominal collection POD#5 Plan: Clear for discharge from surgical standpoint Take Levaquin, percocet and colace as prescribed Let steri-strips fall off on own No heavy lifting for 4 weeks Patient to sponge until follow up with Dr. Woody Keep surgical areas clean and dry Follow up with Dr. Woody within 1-[address] Woody regarding any issues Discussed with Dr. Annalise Lim PGY2 <Patricio Woody - Last Filed: 11/29/17 19:21> Objective - Vital Signs/Intake and Output Vital Signs (last 24 hours): Temp Pulse Resp BP Pulse Ox 97.9 F 72 18 148/93 H 95 11/27/17 16:00 11/27/17 16:00 11/27/17 16:00 11/27/17 16:00 07/20/18 16:00 - Labs Labs: 11/27/17 08:33 11/27/17 08:33 PT 15.9 SECONDS (9.7-12.2) H 11/20/17 05:57 INR 1.5 11/20/17 05:57 APTT 29 SECONDS (21-34) 11/18/17 19:36 Attending/Attestation - Attestation I have personally seen and examined this patient.: Yes I have fully participated in the care of the patient.: Yes I have reviewed all pertinent clinical information, including history, physical exam and plan: Yes Notes (Text): Pt was seen and examined at bedside Agree with above note and assessment Pt is doing well Ileus has resolved DC plan with PO antibiotics f/u as out pt Plan d.w pt in detail
--- NOTE | 2017-11-25 12:49 | CP.PCM.PN ---
Subjective - Date & Time of Evaluation Date of Evaluation: 11/25/17 Time of Evaluation: 12:46 - Subjective Subjective: COVERING DR Ileana HOU. PT ALERT, OOB IN CHAIR., LESS PAIN RUE. ROS; OTHERWISE NEG. Objective - Vital Signs/Intake and Output Vital Signs (last 24 hours): Temp Pulse Resp BP Pulse Ox 97.9 F 83 20 149/89 95 11/25/17 08:00 11/25/17 08:00 11/25/17 08:00 11/25/17 08:00 11/25/17 08:00 Intake and Output: 11/25/17 11/25/17 06:59 18:59 Intake Total 1400 Output Total 2285 Balance -885 - Medications Medications: Current Medications Acetaminophen (Tylenol 325mg Tab) 650 mg PO Q6 PRN PRN Reason: Fever >100.4 F Last Admin: 11/22/17 16:19 Dose: 650 mg Enoxaparin Sodium (Lovenox) 40 mg SC DAILY [facility] Last Admin: 11/25/17 10:15 Dose: 40 mg Meropenem 1 gm/ Sodium (Chloride) 100 mls @ 100 mls/hr IVPB Q8H [facility] PRN Reason: Protocol Last Admin: 11/25/17 05:01 Dose: 100 mls/hr Vancomycin/Sodium Chloride (Vancomycin 1 Gm/Ns 200 Ml) 1 gm in 200 mls @ 133.333 mls/hr IVPB Q24H [facility] PRN Reason: Protocol Stop: 11/29/17 14:31 Last Admin: 11/24/17 14:09 Dose: 133.333 mls/hr Metoprolol Tartrate (Lopressor) 100 mg PO DAILY [facility] Last Admin: 11/25/17 10:15 Dose: 100 mg Ondansetron HCl (Zofran Inj) 4 mg IVP Q6H PRN PRN Reason: Nausea/Vomiting Rosuvastatin Calcium (Crestor) 20 mg PO HS [facility] - Labs Labs: 11/25/17 08:11 11/25/17 08:11 PT 15.9 SECONDS (9.7-12.2) H 11/20/17 05:57 INR 1.5 11/20/17 05:57 APTT 29 SECONDS (21-34) 11/18/17 19:36 - Constitutional Appears: Non-toxic, No Acute Distress - Head Exam Head Exam: ATRAUMATIC, NORMOCEPHALIC - Eye Exam Eye Exam: EOMI, Normal appearance - ENT Exam ENT Exam: Mucous Membranes Moist - Neck Exam Neck Exam: Normal Inspection - Respiratory Exam Respiratory Exam: absent: Wheezes, Respiratory Distress - Cardiovascular Exam Cardiovascular Exam: RRR, +S1, +S2 - GI/Abdominal Exam GI & Abdominal Exam: Soft Additional comments: +SURG DRESSING. - Rectal Exam Rectal Exam: Deferred - Extremities Exam Extremities Exam: absent: Calf Tenderness, Pedal Edema - Back Exam Back Exam: absent: CVA tenderness (L), CVA tenderness (R) - Neurological Exam Neurological Exam: Alert, Awake, CN II-XII Intact, Oriented x3 - Psychiatric Exam Psychiatric exam: Normal Mood - Skin Skin Exam: absent: Rash Assessment and Plan (1) Hx of CABG Status: Acute (2) Hyperlipidemia Status: Acute (3) Acute appendicitis Status: Acute (4) HTN (hypertension) Status: Acute - Assessment and Plan (Free Text) Assessment: S/P APPENDECTOMY POD #5. AFEBRILE ON AB., CXR REVIEWED., REVIEWED UE DOPPLER NEG DVT. CONT PULM TOILET., ENCOURAGE INCENT. SPIROM., PO DIET PER SURG. DISCUSSED WITH STAFF AT LENGTH., PROG GUARDED.
[2017-11-25] MEDS: Vancomycin 1 gm/NS 200 ml 1 GM/200 ML BAG IVPB SCH (14:32)
[2017-11-26] MEDS: Meropenem 1 GM in Sodium Chloride 0.9% 100 ML IVPB SCH ×3 (05:05→21:26)
[2017-11-26 07:42] LABS: HEMOGLOBIN 12.1 g/dL (12.0-18.0); MEAN CELL VOLUME 86.4 fL (80.0-94.0); MEAN CORPUSCULAR HEMOGLOBIN 30.1 pg (27.0-31.0); MEAN CORPUSCULAR HGB CONC 34.9 g/dL (33.0-37.0); MEAN PLATELET VOLUME 7.2 fL (7.2-11.7); RBC 4.01 Mil/uL (4.40-5.90); RED CELL DISTRIBUTION WIDTH 16.4 % (11.5-14.5); WHITE BLOOD COUNT 7.5 K/uL (4.8-10.8)
--- NOTE | 2017-11-26 07:47 | CP.PCM.PN ---
<Taz Lim - Last Filed: 11/26/17 08:12> Subjective - Date & Time of Evaluation Date of Evaluation: 11/26/17 Time of Evaluation: 06:45 - Subjective Subjective: General Surgery Note for Dr. Woody Patient seen and examined at bedside. No acute event overnight. Patient denies pain, nausea/vomiting. He admits to passsing flatus and having BM. Patient has been OOB to chair, ambulating and using incentive spirometer. He is eating wihtout any issues. Patient states that hes is ready to go home today. Objective - Vital Signs/Intake and Output Vital Signs (last 24 hours): Temp Pulse Resp BP Pulse Ox 98.3 F 74 20 133/88 93 L 11/25/17 23:27 11/25/17 23:27 11/25/17 23:27 11/25/17 23:27 11/25/17 23:27 Intake and Output: 11/26/17 11/26/17 06:59 18:59 Intake Total 940 Output Total 1030 Balance -90 - Medications Medications: Current Medications Acetaminophen (Tylenol 325mg Tab) 650 mg PO Q6 PRN PRN Reason: Fever >100.4 F Last Admin: 11/22/17 16:19 Dose: 650 mg Enoxaparin Sodium (Lovenox) 40 mg SC DAILY [facility] Last Admin: 11/25/17 10:15 Dose: 40 mg Meropenem 1 gm/ Sodium (Chloride) 100 mls @ 100 mls/hr IVPB Q8H [facility] PRN Reason: Protocol Last Admin: 11/26/17 05:05 Dose: 100 mls/hr Vancomycin/Sodium Chloride (Vancomycin 1 Gm/Ns 200 Ml) 1 gm in 200 mls @ 133.333 mls/hr IVPB Q24H [facility] PRN Reason: Protocol Stop: 11/29/17 14:31 Last Admin: 11/25/17 14:32 Dose: 133.333 mls/hr Metoprolol Tartrate (Lopressor) 100 mg PO DAILY [facility] Last Admin: 11/25/17 10:15 Dose: 100 mg Ondansetron HCl (Zofran Inj) 4 mg IVP Q6H PRN PRN Reason: Nausea/Vomiting Rosuvastatin Calcium (Crestor) 20 mg PO HS [facility] Last Admin: 11/25/17 21:05 Dose: 20 mg - Labs Labs: 11/26/17 07:37 11/25/17 08:11 PT 15.9 SECONDS (9.7-12.2) H 11/20/17 05:57 INR 1.5 11/20/17 05:57 APTT 29 SECONDS (21-34) 11/18/17 19:36 - Additional Findings Additional findings: - Constitutional Appears: No Acute Distress - Head Exam Head Exam: ATRAUMATIC, NORMOCEPHALIC - Eye Exam Eye Exam: EOMI, Normal appearance Pupil Exam: PERRL - ENT Exam ENT Exam: Mucous Membranes Moist - Respiratory Exam Respiratory Exam: NORMAL BREATHING PATTERN - Cardiovascular Exam Cardiovascular Exam: REGULAR RHYTHM - GI/Abdominal Exam GI & Abdominal Exam: Soft, Normal Bowel Sounds. absent: Distended, Firm, Guarding, Rigid, Tenderness, Rebound Additional comments: Large blister on right abdomen - covered with optiform Steri-strips in place on surgical sites Cb drain in place with 20 cc of serosanguinous output over 24 hrs - Neurological Exam Neurological Exam: Alert, Awake, Oriented x3 - Psychiatric Exam Psychiatric exam: Normal Affect, Normal Mood - Skin Skin Exam: Dry, Warm Assessment and Plan - Assessment and Plan (Free Text) Assessment: 62M with acute appendicitis s/p laparoscopic appendectomy converted to open appendectomy, open cecectomy w/ lysis of adhesions and drainage of abdominal collection POD#6 Plan: Clear for discharge from surgical standpoint Take Levaquin for 5 days Take percocet and colace as prescribed Let steri-strips fall off on own No heavy lifting for 4 weeks Patient to sponge until follow up with Dr. Woody Keep surgical areas clean and dry Follow up with Dr. Woody within 1-[address] Woody regarding any issues Discussed with Dr. Annalise Lim PGY2 <Patricio Woody - Last Filed: 11/29/17 19:28> Objective - Vital Signs/Intake and Output Vital Signs (last 24 hours): Temp Pulse Resp BP Pulse Ox 97.9 F 72 18 148/93 H 95 11/27/17 16:00 11/27/17 16:00 11/27/17 16:00 11/27/17 16:00 11/27/17 16:00 - Labs Labs: 11/27/17 08:33 11/27/17 08:33 PT 15.9 SECONDS (9.7-12.2) H 11/20/17 05:57 INR 1.5 11/20/17 05:57 APTT 29 SECONDS (21-34) 11/18/17 19:36 Attending/Attestation - Attestation I have personally seen and examined this patient.: Yes I have fully participated in the care of the patient.: Yes I have reviewed all pertinent clinical information, including history, physical exam and plan: Yes Notes (Text): Pt was seen and examined at bedside Agree with above note and assessment Pt is improved clinically DC home with PO antibiotics f.u as out pt in office Plan d.w pt in detail Risk and benefit explained in detail.
[2017-11-26 08:13] LABS: BLOOD UREA NITROGEN 8 mg/dL (9-20); CALCIUM 8.6 mg/dl (8.6-10.4); GFR AFRICAN-AMERICAN > 60; GFR NON-AFRICAN AMERICAN > 60
[2017-11-26] MEDS ORDERED: Potassium Chloride 20 mEq ER Tab PO ONE (09:00)
[2017-11-26] MEDS: Enoxaparin 40 mg Syringe SC SCH (09:08)
[2017-11-26] MEDS: Vancomycin 1 gm/NS 200 ml 1 GM/200 ML BAG IVPB SCH (13:55)
--- NOTE | 2017-11-26 14:33 | CP.PCM.PN ---
Subjective - Date & Time of Evaluation Date of Evaluation: 11/26/17 Time of Evaluation: 07:30 - Subjective Subjective: clinically same Objective - Vital Signs/Intake and Output Vital Signs (last 24 hours): Temp Pulse Resp BP Pulse Ox 98.2 F 77 20 142/90 96 11/26/17 07:00 11/26/17 07:00 11/26/17 07:00 11/26/17 07:00 11/26/17 07:00 Intake and Output: 11/26/17 11/26/17 06:59 18:59 Intake Total 940 1100 Output Total 1030 Balance -90 1100 - Medications Medications: Current Medications Acetaminophen (Tylenol 325mg Tab) 650 mg PO Q6 PRN PRN Reason: Fever >100.4 F Last Admin: 11/22/17 16:19 Dose: 650 mg Enoxaparin Sodium (Lovenox) 40 mg SC DAILY [facility] Last Admin: 11/26/17 09:08 Dose: 40 mg Meropenem 1 gm/ Sodium (Chloride) 100 mls @ 100 mls/hr IVPB Q8H [facility] PRN Reason: Protocol Last Admin: 11/26/17 13:55 Dose: 100 mls/hr Vancomycin/Sodium Chloride (Vancomycin 1 Gm/Ns 200 Ml) 1 gm in 200 mls @ 133.333 mls/hr IVPB Q24H [facility] PRN Reason: Protocol Stop: 11/29/17 14:31 Last Admin: 11/26/17 13:55 Dose: 133.333 mls/hr Metoprolol Tartrate (Lopressor) 100 mg PO DAILY [facility] Last Admin: 11/26/17 09:08 Dose: 100 mg Ondansetron HCl (Zofran Inj) 4 mg IVP Q6H PRN PRN Reason: Nausea/Vomiting Rosuvastatin Calcium (Crestor) 20 mg PO HS [facility] Last Admin: 11/25/17 21:05 Dose: 20 mg - Labs Labs: 11/26/17 07:37 11/26/17 07:37 PT 15.9 SECONDS (9.7-12.2) H 11/20/17 05:57 INR 1.5 11/20/17 05:57 APTT 29 SECONDS (21-34) 11/18/17 19:36 - Constitutional Appears: Well - Head Exam Head Exam: ATRAUMATIC, NORMAL INSPECTION, NORMOCEPHALIC - Eye Exam Eye Exam: EOMI, Normal appearance, PERRL Pupil Exam: NORMAL ACCOMODATION, PERRL - ENT Exam ENT Exam: Mucous Membranes Moist, Normal Exam - Neck Exam Neck Exam: Full ROM, Normal Inspection. absent: Lymphadenopathy - Respiratory Exam Respiratory Exam: Decreased Breath Sounds - Cardiovascular Exam Cardiovascular Exam: REGULAR RHYTHM, +S1, +S2 - GI/Abdominal Exam GI & Abdominal Exam: Soft, Diminished Bowel Sounds - Rectal Exam Rectal Exam: Deferred
[2017-11-26 15:53] VITALS: O2SAT 95
[2017-11-27] MEDS: Meropenem 1 GM in Sodium Chloride 0.9% 100 ML IVPB SCH ×2 (05:06→14:31)
[2017-11-27 08:44] LABS: HEMOGLOBIN 12.6 g/dL (12.0-18.0); MEAN CORPUSCULAR HGB CONC 34.8 g/dL (33.0-37.0); MEAN PLATELET VOLUME 7.3 fL (7.2-11.7); RBC 4.22 Mil/uL (4.40-5.90); RED CELL DISTRIBUTION WIDTH 16.3 % (11.5-14.5); WHITE BLOOD COUNT 8.4 K/uL (4.8-10.8)
[2017-11-27 08:58] LABS: BLOOD UREA NITROGEN 8 mg/dL (9-20); CALCIUM 9.1 mg/dl (8.6-10.4); GFR AFRICAN-AMERICAN > 60; GFR NON-AFRICAN AMERICAN > 60
[2017-11-27] MEDS: Enoxaparin 40 mg Syringe SC SCH (09:42)
--- NOTE | 2017-11-27 09:44 | CP.PCM.PN ---
Subjective - Date & Time of Evaluation Date of Evaluation: 11/27/17 Time of Evaluation: 09:36 - Subjective Subjective: PGY-[address] Reyes's service Pt seen and examined at bedside. Nursing reports pt afebrile, and no acute events overnight. Patient is POD # 7 from open appendectomy. Patient reports tolerating diet, passing flatus/BM without difficulty. He denies subjective fever, chills, chest pain, or SOB. He is asking to be discharged today. Objective - Vital Signs/Intake and Output Vital Signs (last 24 hours): Temp Pulse Resp BP Pulse Ox 98.1 F 78 20 138/87 95 11/27/17 07:18 11/27/17 07:18 11/27/17 07:18 11/27/17 07:18 11/27/17 07:18 Intake and Output: 11/27/17 11/27/17 06:59 18:59 Intake Total 240 Output Total 500 Balance -260 - Medications Medications: Current Medications Acetaminophen (Tylenol 325mg Tab) 650 mg PO Q6 PRN PRN Reason: Fever >100.4 F Last Admin: 11/22/17 16:19 Dose: 650 mg Enoxaparin Sodium (Lovenox) 40 mg SC DAILY [facility] Last Admin: 11/26/17 09:08 Dose: 40 mg Meropenem 1 gm/ Sodium (Chloride) 100 mls @ 100 mls/hr IVPB Q8H [facility] PRN Reason: Protocol Last Admin: 11/27/17 05:06 Dose: 100 mls/hr Vancomycin/Sodium Chloride (Vancomycin 1 Gm/Ns 200 Ml) 1 gm in 200 mls @ 133.333 mls/hr IVPB Q24H [facility] PRN Reason: Protocol Stop: 11/29/17 14:31 Last Admin: 11/26/17 13:55 Dose: 133.333 mls/hr Metoprolol Tartrate (Lopressor) 100 mg PO DAILY [facility] Last Admin: 11/26/17 09:08 Dose: 100 mg Ondansetron HCl (Zofran Inj) 4 mg IVP Q6H PRN PRN Reason: Nausea/Vomiting Rosuvastatin Calcium (Crestor) 20 mg PO HS [facility] Last Admin: 11/26/17 21:25 Dose: 20 mg - Labs Labs: 11/27/17 08:33 11/27/17 08:33 PT 15.9 SECONDS (9.7-12.2) H 11/20/17 05:57 INR 1.5 11/20/17 05:57 APTT 29 SECONDS (21-34) 11/18/17 19:36 - Additional Findings Additional findings: - Constitutional Appears: No Acute Distress - Head Exam Head Exam: ATRAUMATIC, NORMOCEPHALIC - Eye Exam Eye Exam: EOMI, Normal appearance Pupil Exam: PERRL - ENT Exam ENT Exam: Mucous Membranes Moist - Respiratory Exam Respiratory Exam: NORMAL BREATHING PATTERN - Cardiovascular Exam Cardiovascular Exam: REGULAR RHYTHM - GI/Abdominal Exam GI & Abdominal Exam: Soft, Normal Bowel Sounds. absent: Distended, Firm, Guarding, Rigid, Tenderness, Rebound Additional comments: Large blister on right abdomen - covered with optiform Steri-strips in place on surgical sites Cb drain in place with 20 cc of serosanguinous output over 24 hrs - Neurological Exam Neurological Exam: Alert, Awake, Oriented x3 - Psychiatric Exam Psychiatric exam: Normal Affect, Normal Mood - Skin Skin Exam: Dry, Warm Assessment and Plan - Assessment and Plan (Free Text) Plan: Acute Appendicitis CT A/P (11/20/17): Findings concernign for acute appendicitis. 8 mm hypodensity within right hepatic lobe. Correlate with mutiphasic CT/MR. Thick walled urinary bladder. (see full report) s/p POD # 7 lap appendectomy converted to open 11/20/17 Dr. Woody, Gen surgery, help appreciated - clear for discharge from surgical perspective - Levaquin x 4 days; Percocet/Colace - Follow up with Dr. Woody within 1-[address] Bell, ID storage consultant, help appreciated - continue IV antibiotics Dr. Rodriguez, Cardiology for Pre-op Clearance - viewed records showing cath performed two months ago: no significant CAD - pt medically optimized for appendectomy Tylenol 650mg PO Q6H PRN for fever Merrem 1gm IV Q8H (started 11/19/17, Day 9) Vancomycin 1gm IV Q24H (Started 11/24/17, Day 4) Flagyl Discontinued Diludid 0.5mg Q3H PRN pain Zofran 4mg IV Q6H PRN N/V CAD Hx of CABG Crestor 20mg PO HS Lopressor 100mg PO Daily Dr. Rodriguez, Cardiology for Pre-op Clearance - viewed records showing cath performed two months ago: no significant CAD CHF (unknown type) Elevated pro-BNP at admission (2200) ECHO (11/20/17): EF 65-70%, mild concentric LVH, Mild MR with sclerotic leaflets , No pericardial effusion, Aortic valve bicuspid, normal pulm pressures Ascending Thoracic Aortic Aneurysm, s/p repair S/P Repair two months ago Monitor BP HTN Well controlled over course Lopressor 100mg PO Daily Prophylaxis Lovenox 40mg SC daily SCDs GI not indicated Disposition: Pt for discharge today. F/u w/ Dr. Woody in 1 - 2 weeks. Sawyer Richardson PGY-[address] Reyes
[2017-11-27 16:49] VITALS: BP 148/93; PULSE 72; RESP 18; TEMP 97.9
== END 2017-11-27 16:13 | disposition home or self-care (01) | DRG 585 ==
LOC: C.ER 18:50 → C.9E 11-19 00:04 → C.5S 11-19 03:05
PROVIDERS: ADMIT Internal Medicine Nephrology; ATTEND Internal Medicine Nephrology
PROC: 0DBH0ZZ Excision of Cecum, Open Approach (ICD-10-PCS; 2017-11-20)
PROC: 0DJD4ZZ Inspection of Lower Intestinal Tract, Percutaneous Endoscopic Approach (ICD-10-PCS; 2017-11-20)
PROC: 0DNW4ZZ Release Peritoneum, Percutaneous Endoscopic Approach (ICD-10-PCS; 2017-11-20)
PROC: 0D9W00Z Drainage of Peritoneum with Drainage Device, Open Approach (ICD-10-PCS; 2017-11-20)
PROC: 0DTJ0ZZ Resection of Appendix, Open Approach (ICD-10-PCS; principal; 2017-11-20 07:30)
DX: K35.2 Acute appendicitis with generalized peritonitis (principal); K55.049 Acute infarction of large intestine, extent unspecified; I80.8 Phlebitis and thrombophlebitis of other sites; K56.7 Ileus, unspecified; K66.0 Peritoneal adhesions (postprocedural) (postinfection); L03.113 Cellulitis of right upper limb; K38.1 Appendicular concretions; I71.2 Thoracic aortic aneurysm, without rupture; E78.00 Pure hypercholesterolemia, unspecified; I10 Essential (primary) hypertension; I48.91 Unspecified atrial fibrillation; Z53.31 Laparoscopic surgical procedure converted to open procedure; Z87.891 Personal history of nicotine dependence; Z95.1 Presence of aortocoronary bypass graft